=== PATIENT | male | born 1935 | race Asian ===

== ENCOUNTER 2016-10-18 14:33 | Inpatient (IN) | payer OTHER ==
[~2016-10-18] VITALS: Ht 157.5 cm; Wt 70.5 kg
[~2016-10-18 14:33] MED LIST: AMLO-511 PO; ASPI81TA2 PO; B CO1CAP4 PO; CHOL2000 PO; LABE200T PO; LISI10TA PO
[2016-10-18] MEDS ORDERED: LANT1000 PO (15:20)
[2016-10-18] MEDS ORDERED: SEVEC800 PO (15:20)
[2016-10-18] MEDS ORDERED: CINA30 PO (15:20)
[2016-10-18] MEDS ORDERED: FOLI1 PO (15:20)
[2016-10-18] MEDS ORDERED: HEPARIN SODIUM,PORCINE 5,000 UNITS/ML VIAL IVP ONE ×2 (18:30→19:00)
[2016-10-18 18:34] LABS: BASOPHILS % (AUTO) 0.4 % (0.0-2.0); EOSINOPHILS % (AUTO) 4.2 % (1.0-6.0); HEMATOCRIT 46.7 % (41-53); HEMOGLOBIN 15.2 g/dL (13.5-17.5); LYMPHOCYTES # (AUTO) 1.1 K/uL (1.0-4.8); MEAN CORPUSCULAR HGB CONC 32.5 G/dL (31.0-37.0); MEAN CORPUSCULAR VOLUME 95 fL (80-100); MONOCYTES # (AUTO) 0.6 K/uL (0.1-1.0); MONOCYTES % (AUTO) 8.3 % (2.0-9.0); NEUTROPHILS # (AUTO) 4.9 K/uL (1.8-7.7); NEUTROPHILS % (AUTO) 71.1 % (40.0-70.0); PLATELET COUNT (AUTO) 161 K/uL (150-450); WHITE BLOOD COUNT (AUTO) 6.8 K/uL (4.5-11.0)
[2016-10-18] MEDS ORDERED: MAGNESIUM HYDROXIDE SUSPENSION 30 ML UDCUP PO PRN (18:45)
[2016-10-18] MEDS ORDERED: BISACODYL 10 MG RECTAL RECTAL SUPPOSITORY PR PRN (18:45)
[2016-10-18] MEDS ORDERED: ZOLPIDEM TARTRATE 5 MG TABLET PO PRN (18:45)
[2016-10-18] MEDS ORDERED: ALBUTEROL SULFATE 2.5 MG/0.5 ML NEB SOLUTION NEB PRN (18:45)
[2016-10-18] MEDS ORDERED: ACETAMINOPHEN 325 MG TABLET PO PRN (18:45)
[2016-10-18] MEDS ORDERED: ONDANSETRON HCL 4 MG/2 ML VIAL IVP PRN (18:45)
[2016-10-18] MEDS ORDERED: IPRATROPIUM BROMIDE 0.5 MG/2.5 ML NEB SOLUTION NEB PRN (18:45)
[2016-10-18 18:48] LABS: PROTHROMBIN TIME 10.7 SEC (9.4-11.6)
[2016-10-18 18:50] LABS: ALBUMIN 2.8 g/dL (3.4-5.0); BILIRUBIN,TOTAL 0.4 mg/dL (0.1-1.0); CALCIUM, TOTAL 9.5 mg/dL (8.8-10.5); CREATININE 12.08 mg/dL (0.60-1.30); POTASSIUM 4.2 mmol/L (3.5-5.1); TOTAL PROTEIN, SERUM 7.8 g/dL (6.4-8.2)
[2016-10-18] MEDS ORDERED: HEPARIN SODIUM 25000 UNITS/D5W 250 ML IV PRN (18:53)
[2016-10-18] MEDS ORDERED: HEPARIN SODIUM,PORCINE 5,000 UNITS/ML VIAL IVP PRN ×2 (19:00)
[2016-10-18] MEDS: HEPARIN SODIUM 25000 UNITS/D5W 250 ML IV PRN (19:35)
[2016-10-18] MEDS ORDERED: CloNIDine HCL 0.1 MG TABLET PO PRN (20:15)
[2016-10-18 21:10] VITALS: BP 155/67
[2016-10-18] MEDS: TEMAZEPAM 15 MG CAPSULE PO PRN (22:08)
[2016-10-18 23:55] VITALS: BP 132/70
[2016-10-19 04:40] VITALS: BP 124/64
[2016-10-19 07:23] VITALS: BP 124/61
[2016-10-19] MEDS: CHOLECALCIFEROL (VIT D3) 2,000 UNITS TABLET PO SCH (08:31)
[2016-10-19] MEDS: FOLIC ACID 1 MG TABLET PO SCH (08:31)
[2016-10-19] MEDS: VITAMIN B COMP/VIT C/FOLIC ACID CAPSULE PO SCH (08:31)
[2016-10-19] MEDS: PANTOPRAZOLE SODIUM 40 MG DR TABLET PO SCH (08:31)
[2016-10-19] MEDS ORDERED: SEVELAMER CARBONATE 800 MG TABLET PO SCH (09:00)
[2016-10-19 09:17] LABS: BASOPHILS % (AUTO) 0.7 % (0.0-2.0); EOSINOPHILS % (AUTO) 4.1 % (1.0-6.0); HEMATOCRIT 44.3 % (41-53); HEMOGLOBIN 14.4 g/dL (13.5-17.5); LYMPHOCYTES # (AUTO) 0.9 K/uL (1.0-4.8); LYMPHOCYTES % (AUTO) 11.8 % (22.0-44.0); MEAN CORPUSCULAR HEMOGLOBIN 30.8 pg (26.0-34.0); MEAN CORPUSCULAR HGB CONC 32.4 G/dL (31.0-37.0); MEAN CORPUSCULAR VOLUME 95 fL (80-100); MONOCYTES # (AUTO) 0.5 K/uL (0.1-1.0); MONOCYTES % (AUTO) 7.1 % (2.0-9.0); NEUTROPHILS # (AUTO) 5.8 K/uL (1.8-7.7); NEUTROPHILS % (AUTO) 76.3 % (40.0-70.0); PLATELET COUNT (AUTO) 199 K/uL (150-450); RED BLOOD CELL COUNT(AUTO) 4.66 MIL/uL (4.50-5.90); RED CELL DISTRIBUTION WIDTH 14.9 % (11.5-14.5); WHITE BLOOD COUNT (AUTO) 7.6 K/uL (4.5-11.0)
[2016-10-19 09:40] LABS: CALCIUM, TOTAL 8.9 mg/dL (8.8-10.5); CHOL/HDL RATIO 2.4 (4.2-7.3); CREATININE 13.4 mg/dL (0.60-1.30); POTASSIUM 4.4 mmol/L (3.5-5.1); THYROID STIMULATING HORMONE 1.85 uIU/mL (0.36-3.74)
[2016-10-19] MEDS: HEPARIN SODIUM 25000 UNITS/D5W 250 ML IV PRN ×2 (09:49→20:02)
[2016-10-19 09:58] LABS: HEMOGLOBIN A1C 5.1 % (4.5-6.2)
[2016-10-19] MEDS ORDERED: SODIUM CHLORIDE 0.9% 2,000 ML IV ONE (10:06)
[2016-10-19 11:08] LABS: VITAMIN B12 LEVEL 644 pg/mL (211-911)
[2016-10-19 16:23] VITALS: BP 124/53
[2016-10-19] MEDS: SEVELAMER CARBONATE 800 MG TABLET PO SCH (17:27)
[2016-10-19] MEDS ORDERED: CINACALCET HCL 30 MG TABLET PO SCH (18:00)
[2016-10-19 19:34] VITALS: BP 122/72
[2016-10-19] MEDS: TEMAZEPAM 15 MG CAPSULE PO PRN (22:46)
[2016-10-19 23:11] VITALS: BP 118/61
[2016-10-20 04:18] VITALS: BP 123/60
[2016-10-20] MEDS: HEPARIN SODIUM 25000 UNITS/D5W 250 ML IV PRN (07:10)
[2016-10-20 07:22] LABS: BASOPHILS % (AUTO) 0.2 % (0.0-2.0); EOSINOPHILS % (AUTO) 5.1 % (1.0-6.0); HEMATOCRIT 45.5 % (41-53); HEMOGLOBIN 14.6 g/dL (13.5-17.5); LYMPHOCYTES % (AUTO) 20.6 % (22.0-44.0); MEAN CORPUSCULAR HEMOGLOBIN 30.8 pg (26.0-34.0); MEAN CORPUSCULAR HGB CONC 32.1 G/dL (31.0-37.0); MEAN CORPUSCULAR VOLUME 96 fL (80-100); MONOCYTES # (AUTO) 0.5 K/uL (0.1-1.0); MONOCYTES % (AUTO) 9.7 % (2.0-9.0); NEUTROPHILS # (AUTO) 3.3 K/uL (1.8-7.7); NEUTROPHILS % (AUTO) 64.4 % (40.0-70.0); PLATELET COUNT (AUTO) 197 K/uL (150-450); RED BLOOD CELL COUNT(AUTO) 4.75 MIL/uL (4.50-5.90); RED CELL DISTRIBUTION WIDTH 15.6 % (11.5-14.5); WHITE BLOOD COUNT (AUTO) 5.1 K/uL (4.5-11.0)
[2016-10-20 07:23] LABS: CALCIUM, TOTAL 8.6 mg/dL (8.8-10.5); CREATININE 9.78 mg/dL (0.60-1.30); PHOSPHORUS 4.8 mg/dL (2.5-4.9); POTASSIUM 4.1 mmol/L (3.5-5.1)
[2016-10-20 07:46] VITALS: BP 139/67
[2016-10-20] MEDS: SEVELAMER CARBONATE 800 MG TABLET PO SCH ×2 (08:07→14:50)
[2016-10-20] MEDS: VITAMIN B COMP/VIT C/FOLIC ACID CAPSULE PO SCH (08:08)
[2016-10-20] MEDS: FOLIC ACID 1 MG TABLET PO SCH (08:08)
[2016-10-20] MEDS: PANTOPRAZOLE SODIUM 40 MG DR TABLET PO SCH (08:08)
[2016-10-20] MEDS: CHOLECALCIFEROL (VIT D3) 2,000 UNITS TABLET PO SCH (08:08)
[2016-10-20 11:47] VITALS: BP 136/70
[2016-10-20 14:13] LABS: HEPATITIS Bs ANTIGEN SCREEN P Negative (Negative); HEPATITIS C AB SCREEN 0.1 s/co ratio (0.0-0.9)
[2016-10-21] MEDS ORDERED: EPOETIN ALFA 10,000 UNITS/ML 2 ML VIAL SQ SCH (09:00)
[2016-10-21] MEDS ORDERED: DOXERCALCIFEROL 4 MCG/2 ML AMP IVP SCH (09:00)
== END 2016-10-20 16:21 | disposition home or self-care (01) | DRG 314 ==
LOC: EMS 14:34 → 6N 18:42
PROVIDERS: ADMIT Internal Medicine Geriatric Medicine; ATTEND Internal Medicine Geriatric Medicine
PROC: 5A1D00Z (ICD-10-PCS; principal; 2016-10-19)
DX: T82.856A Stenosis of peripheral vascular stent, initial encounter (principal); N18.6 End stage renal disease; I82.B12 Acute embolism and thrombosis of left subclavian vein; I13.2 Hypertensive heart and chronic kidney disease with heart failure and with stage 5 chronic kidney disease, or end stage renal disease; E87.1 Hypo-osmolality and hyponatremia; E44.0 Moderate protein-calorie malnutrition; E78.5 Hyperlipidemia, unspecified; I50.9 Heart failure, unspecified; M10.9 Gout, unspecified; N28.1 Cyst of kidney, acquired; D63.1 Anemia in chronic kidney disease; E78.00 Pure hypercholesterolemia, unspecified; Z99.2 Dependence on renal dialysis; Z79.899 Other long term (current) drug therapy; Z98.890 Other specified postprocedural states; Z86.718 Personal history of other venous thrombosis and embolism; Y84.8 Other medical procedures as the cause of abnormal reaction of the patient, or of later complication, without mention of misadventure at the time of the procedure; Y93.89 Activity, other specified; Y92.89 Other specified places as the place of occurrence of the external cause; Z68.28 Body mass index [BMI] 28.0-28.9, adult
CPT/HCPCS: 80074; 82306; 82607; 82746; 83036; 83735; 84100; 84439; 84443; 87081; 90935; 93971; 96374; 99285; J0885; J1644; J7030

== ENCOUNTER 2018-03-02 11:22 | Emergency (ER) | payer OTHER, MEDICAID ==
[~2018-03-02] VITALS: Ht 157.5 cm; Wt 64.0 kg
[~2018-03-02 11:22] MED LIST changes: -AMLO-511 PO; -ASPI81TA2 PO; +CINA30 PO; +FOLI1 PO; -LABE200T PO; +LANT1000 PO; -LISI10TA PO; +SEVEC800 PO
[2018-03-02 12:06] VITALS: BP 121/58
[2018-03-02 13:07] LABS: CALCIUM, TOTAL 8.8 mg/dL (8.8-10.5); CREATININE 5.44 mg/dL (0.60-1.30); POTASSIUM 4.2 mmol/L (3.5-5.1)
== END 2018-03-02 13:25 | disposition home or self-care (01) ==
LOC: EMS 11:22
DX: R00.1 Bradycardia, unspecified (principal); I12.0 Hypertensive chronic kidney disease with stage 5 chronic kidney disease or end stage renal disease; N18.6 End stage renal disease; E78.00 Pure hypercholesterolemia, unspecified; Z99.2 Dependence on renal dialysis
CPT/HCPCS: 93005; 99285

== ENCOUNTER → 2018-04-07 | Outpatient (CLI) | payer OTHER, MEDICAID | END | disposition home or self-care (01) | LOC: RADPV 14:14 | PROVIDERS: ATTEND Internal Medicine Cardiovascular Disease | DX: I08.3 Combined rheumatic disorders of mitral, aortic and tricuspid valves (principal); I40.9 Acute myocarditis, unspecified; I49.9 Cardiac arrhythmia, unspecified; E78.00 Pure hypercholesterolemia, unspecified; I10 Essential (primary) hypertension; M10.9 Gout, unspecified | CPT/HCPCS: 93306 ==

== ENCOUNTER 2018-11-05 18:04 | Emergency (ER) | payer MEDICARE, MEDICAID ==
[~2018-11-05] VITALS: Ht 157.5 cm; Wt 65.9 kg
[2018-11-05] MEDS ORDERED: TEMA15CA PO (18:13)
[2018-11-05] MEDS ORDERED: CINA30 PO (18:13)
[2018-11-05] MEDS ORDERED: DOXY100C PO (18:13)
[2018-11-05 18:34] LABS: BASOPHILS % (AUTO) 0.3 % (0.0-2.0); EOSINOPHILS % (AUTO) 1.3 % (1.0-6.0); HEMATOCRIT 39.5 % (41-53); HEMOGLOBIN 13.5 g/dL (13.5-17.5); LYMPHOCYTES # (AUTO) 0.5 K/uL (1.0-4.8); LYMPHOCYTES % (AUTO) 4.3 % (22.0-44.0); MEAN CORPUSCULAR HEMOGLOBIN 31.7 pg (26.0-34.0); MEAN CORPUSCULAR HGB CONC 34.1 G/dL (31.0-37.0); MEAN CORPUSCULAR VOLUME 93 fL (80-100); MONOCYTES # (AUTO) 0.6 K/uL (0.1-1.0); NEUTROPHILS # (AUTO) 9.4 K/uL (1.8-7.7); PLATELET COUNT (AUTO) 168 K/uL (150-450); RED BLOOD CELL COUNT(AUTO) 4.25 MIL/uL (4.50-5.90); RED CELL DISTRIBUTION WIDTH 15.1 % (11.5-14.5)
[2018-11-05 18:37] LABS: NEUTROPHILS % (AUTO) 88.1 % (40.0-70.0)
[2018-11-05 18:43] LABS: CALCIUM, TOTAL 9.8 mg/dL (8.8-10.5); CREATININE 8.06 mg/dL (0.60-1.30); POTASSIUM 5.1 mmol/L (3.5-5.1)
[2018-11-05 18:50] LABS: ALBUMIN 3.4 g/dL (3.4-5.0); BILIRUBIN,TOTAL 1.1 mg/dL (0.1-1.0); TOTAL PROTEIN, SERUM 8.1 g/dL (6.4-8.2)
[2018-11-05 18:51] LABS: LACTIC ACID 1.7 mmol/L (0.4-2.0)
[2018-11-05 21:08] LABS: INFLUENZA TYPE A NEGATIVE FOR TYPE A (NEGATIVE); INFLUENZA TYPE B NEGATIVE FOR TYPE B (NEGATIVE)
[2018-11-05] MEDS ORDERED: CefTRIAXone SODIUM 1 GM/VIAL IM ONE (21:30)
[2018-11-05] MEDS ORDERED: LIDOCAINE/PF 1% 2 ML VIAL IM ONE (21:30)
[2018-11-05] MEDS ORDERED: ALBUTEROL SULFATE 2.5 MG/0.5 ML NEB SOLUTION NEB ONE (21:35)
[2018-11-05 22:21] VITALS: BP 150/71
== END 2018-11-05 22:31 | disposition home or self-care (01) ==
LOC: EMS 18:06
DX: J20.9 Acute bronchitis, unspecified (principal); I12.0 Hypertensive chronic kidney disease with stage 5 chronic kidney disease or end stage renal disease; N18.6 End stage renal disease; E78.00 Pure hypercholesterolemia, unspecified; Z99.2 Dependence on renal dialysis
CPT/HCPCS: 71045; 80053; 83605; 85025; 87804; 94640; 96372; 99284; J0696; J3490

== ENCOUNTER 2018-11-13 16:47 | Inpatient (IN) | payer MEDICARE, MEDICAID ==
[~2018-11-13] VITALS: Ht 162.6 cm; Wt 59.1 kg
[~2018-11-13 16:47] MED LIST changes: +DOXY100C PO; +TEMA15CA PO
[2018-11-13] MEDS ORDERED: MELA5TAB3 PO (16:59)
[2018-11-13 17:22] LABS: BASOPHILS % (AUTO) 0.5 % (0.0-2.0); EOSINOPHILS % (AUTO) 2.3 % (1.0-6.0); HEMATOCRIT 37.1 % (41-53); HEMOGLOBIN 12.5 g/dL (13.5-17.5); LYMPHOCYTES # (AUTO) 0.8 K/uL (1.0-4.8); LYMPHOCYTES % (AUTO) 10.3 % (22.0-44.0); MEAN CORPUSCULAR HGB CONC 33.8 G/dL (31.0-37.0); MEAN CORPUSCULAR VOLUME 92 fL (80-100); MONOCYTES # (AUTO) 0.7 K/uL (0.1-1.0); MONOCYTES % (AUTO) 8.6 % (2.0-9.0); NEUTROPHILS # (AUTO) 6.4 K/uL (1.8-7.7); NEUTROPHILS % (AUTO) 78.3 % (40.0-70.0); PLATELET COUNT (AUTO) 203 K/uL (150-450); RED BLOOD CELL COUNT(AUTO) 4.04 MIL/uL (4.50-5.90); RED CELL DISTRIBUTION WIDTH 14.8 % (11.5-14.5)
[2018-11-13 17:30] LABS: CREATININE 10.43 mg/dL (0.60-1.30); POTASSIUM 4.5 mmol/L (3.5-5.1)
[2018-11-13 17:34] LABS: PROTHROMBIN TIME 10.4 SEC (9.4-11.6)
[2018-11-13 17:55] LABS: ALBUMIN 3.4 g/dL (3.4-5.0); BILIRUBIN,TOTAL 1.5 mg/dL (0.1-1.0); TOTAL PROTEIN, SERUM 7.7 g/dL (6.4-8.2)
[2018-11-13] MEDS ORDERED: IPRATROPIUM BROMIDE 0.5 MG/2.5 ML NEB SOLUTION NEB ONE (18:15)
[2018-11-13] MEDS ORDERED: ALBUTEROL SULFATE 2.5 MG/0.5 ML NEB SOLUTION NEB ONE (18:15)
[2018-11-13] MEDS ORDERED: CloNIDine HCL 0.2 MG TABLET PO ONE (18:45)
[2018-11-13] MEDS ORDERED: ACETAMINOPHEN 325 MG TABLET PO PRN (18:45)
[2018-11-13] MEDS ORDERED: 0.9% SODIUM CHLORIDE 10 ML SYRINGE IVP PRN ×2 (18:45→23:30)
[2018-11-13] MEDS ORDERED: ONDANSETRON HCL 4 MG/2 ML VIAL IVP PRN ×2 (18:45→23:30)
[2018-11-13] MEDS ORDERED: [UNRECOGNIZED DRUG - CODE] PO (21:21)
[2018-11-13 22:07] VITALS: BP 170/79
[2018-11-13] MEDS ORDERED: TEMAZEPAM 15 MG CAPSULE PO SCH (23:30)
[2018-11-14 00:09] VITALS: BP 163/75
[2018-11-14] MEDS: GuaiFENesin/D-METHORPHAN [SUGAR-FREE] 200-20MG/10 ML SYRUP UDCUP PO PRN ×3 (01:11→21:16)
[2018-11-14] MEDS: TEMAZEPAM 15 MG CAPSULE PO PRN ×2 (01:11→22:36)
[2018-11-14 04:11] VITALS: BP 134/60
[2018-11-14 05:46] LABS: BASOPHILS % (AUTO) 0.5 % (0.0-2.0); EOSINOPHILS % (AUTO) 3.3 % (1.0-6.0); HEMATOCRIT 35.4 % (41-53); HEMOGLOBIN 11.8 g/dL (13.5-17.5); LYMPHOCYTES # (AUTO) 0.6 K/uL (1.0-4.8); LYMPHOCYTES % (AUTO) 9.8 % (22.0-44.0); MEAN CORPUSCULAR HGB CONC 33.3 G/dL (31.0-37.0); MEAN CORPUSCULAR VOLUME 93 fL (80-100); MONOCYTES # (AUTO) 0.5 K/uL (0.1-1.0); MONOCYTES % (AUTO) 7.9 % (2.0-9.0); NEUTROPHILS # (AUTO) 4.8 K/uL (1.8-7.7); NEUTROPHILS % (AUTO) 78.5 % (40.0-70.0); PLATELET COUNT (AUTO) 190 K/uL (150-450); RED BLOOD CELL COUNT(AUTO) 3.81 MIL/uL (4.50-5.90); RED CELL DISTRIBUTION WIDTH 14.6 % (11.5-14.5)
[2018-11-14 07:17] LABS: ALBUMIN 2.9 g/dL (3.4-5.0); CALCIUM, TOTAL 9.4 mg/dL (8.8-10.5); CREATININE 5.97 mg/dL (0.60-1.30); MAGNESIUM 2.1 mg/dL (1.80-2.40); POTASSIUM 4.3 mmol/L (3.5-5.1); TOTAL PROTEIN, SERUM 7.1 g/dL (6.4-8.2)
[2018-11-14 08:06] VITALS: BP 155/63
[2018-11-14] MEDS: SEVELAMER CARBONATE 800 MG TABLET PO SCH (08:44)
[2018-11-14] MEDS: CHOLECALCIFEROL (VIT D3) 2,000 UNITS TABLET PO SCH (08:44)
[2018-11-14] MEDS: PANTOPRAZOLE SODIUM 40 MG/VIAL IVP SCH (08:44)
[2018-11-14] MEDS: CINACALCET HCL 30 MG TABLET PO SCH (08:44)
[2018-11-14] MEDS: VITAMIN B COMP/VIT C/FOLIC ACID CAPSULE PO SCH (08:44)
[2018-11-14] MEDS: FOLIC ACID 1 MG TABLET PO SCH (08:44)
[2018-11-14] MEDS: DOXYCYCLINE HYCLATE 100 MG CAPSULE PO SCH ×2 (08:45→21:10)
[2018-11-14] MEDS: LANTHANUM CARBONATE 500 MG CHEW TABLET PO SCH (08:45)
[2018-11-14 11:07] VITALS: BP 121/58
[2018-11-14 15:24] VITALS: BP 160/68
[2018-11-14 20:53] VITALS: BP 187/76
[2018-11-14] MEDS: MELATONIN 5 MG TABLET PO SCH (21:10)
[2018-11-14] MEDS ORDERED: CloNIDine HCL 0.1 MG TABLET PO ONE (22:15)
[2018-11-15 00:31] VITALS: BP 140/66
[2018-11-15 05:31] VITALS: BP 158/80
[2018-11-15 06:26] LABS: BASOPHILS % (AUTO) 0.7 % (0.0-2.0); EOSINOPHILS % (AUTO) 6.2 % (1.0-6.0); HEMATOCRIT 35.3 % (41-53); HEMOGLOBIN 11.7 g/dL (13.5-17.5); LYMPHOCYTES # (AUTO) 0.9 K/uL (1.0-4.8); LYMPHOCYTES % (AUTO) 13.5 % (22.0-44.0); MEAN CORPUSCULAR HGB CONC 33.2 G/dL (31.0-37.0); MEAN CORPUSCULAR VOLUME 93 fL (80-100); MONOCYTES # (AUTO) 0.6 K/uL (0.1-1.0); MONOCYTES % (AUTO) 8.8 % (2.0-9.0); NEUTROPHILS # (AUTO) 4.6 K/uL (1.8-7.7); NEUTROPHILS % (AUTO) 70.8 % (40.0-70.0); PLATELET COUNT (AUTO) 180 K/uL (150-450); RED BLOOD CELL COUNT(AUTO) 3.78 MIL/uL (4.50-5.90); RED CELL DISTRIBUTION WIDTH 14.9 % (11.5-14.5)
[2018-11-15 06:53] LABS: ALBUMIN 2.7 g/dL (3.4-5.0); BILIRUBIN,TOTAL 1.1 mg/dL (0.1-1.0); CALCIUM, TOTAL 9.1 mg/dL (8.8-10.5); CREATININE 8.39 mg/dL (0.60-1.30); POTASSIUM 4.9 mmol/L (3.5-5.1); TOTAL PROTEIN, SERUM 6.6 g/dL (6.4-8.2)
[2018-11-15 08:04] VITALS: BP 156/69
[2018-11-15] MEDS: CINACALCET HCL 30 MG TABLET PO SCH (08:18)
[2018-11-15] MEDS: CHOLECALCIFEROL (VIT D3) 2,000 UNITS TABLET PO SCH (08:18)
[2018-11-15] MEDS: DOXYCYCLINE HYCLATE 100 MG CAPSULE PO SCH ×2 (08:18→21:33)
[2018-11-15] MEDS: SEVELAMER CARBONATE 800 MG TABLET PO SCH (08:19)
[2018-11-15] MEDS: FOLIC ACID 1 MG TABLET PO SCH (08:19)
[2018-11-15] MEDS: VITAMIN B COMP/VIT C/FOLIC ACID CAPSULE PO SCH (08:19)
[2018-11-15] MEDS: LANTHANUM CARBONATE 500 MG CHEW TABLET PO SCH (08:24)
[2018-11-15] MEDS: PANTOPRAZOLE SODIUM 40 MG/VIAL IVP SCH (09:00)
[2018-11-15] MEDS ORDERED: SODIUM CHLORIDE 0.9% 2,000 ML IV ONE (09:22)
[2018-11-15 11:29] VITALS: BP 162/68
[2018-11-15 15:54] VITALS: BP 158/66
[2018-11-15 20:46] VITALS: BP 156/65
[2018-11-15] MEDS: GuaiFENesin/D-METHORPHAN [SUGAR-FREE] 200-20MG/10 ML SYRUP UDCUP PO PRN (21:33)
[2018-11-15] MEDS: MELATONIN 5 MG TABLET PO SCH (21:33)
[2018-11-15] MEDS: TEMAZEPAM 15 MG CAPSULE PO PRN (23:19)
[2018-11-16 00:47] VITALS: BP 148/64
[2018-11-16 04:56] VITALS: BP 153/60
[2018-11-16 05:52] LABS: BASOPHILS % (AUTO) 0.8 % (0.0-2.0); EOSINOPHILS % (AUTO) 6.2 % (1.0-6.0); HEMATOCRIT 39.4 % (41-53); HEMOGLOBIN 13.1 g/dL (13.5-17.5); LYMPHOCYTES % (AUTO) 15.7 % (22.0-44.0); MEAN CORPUSCULAR HEMOGLOBIN 30.8 pg (26.0-34.0); MEAN CORPUSCULAR HGB CONC 33.4 G/dL (31.0-37.0); MEAN CORPUSCULAR VOLUME 93 fL (80-100); MONOCYTES # (AUTO) 0.5 K/uL (0.1-1.0); MONOCYTES % (AUTO) 8.7 % (2.0-9.0); NEUTROPHILS # (AUTO) 4.2 K/uL (1.8-7.7); NEUTROPHILS % (AUTO) 68.6 % (40.0-70.0); PLATELET COUNT (AUTO) 208 K/uL (150-450); RED BLOOD CELL COUNT(AUTO) 4.26 MIL/uL (4.50-5.90); RED CELL DISTRIBUTION WIDTH 15.1 % (11.5-14.5)
[2018-11-16 06:15] LABS: HEMOGLOBIN A1C 5.8 % (4.5-6.2)
[2018-11-16 06:21] LABS: CALCIUM, TOTAL 9.3 mg/dL (8.8-10.5); CHOL/HDL RATIO 3.2 (4.2-7.3); CREATININE 6.56 mg/dL (0.60-1.30); POTASSIUM 4.6 mmol/L (3.5-5.1); THYROID STIMULATING HORMONE 2.63 uIU/mL (0.36-3.74)
[2018-11-16 08:09] VITALS: BP 172/79
[2018-11-16] MEDS: FOLIC ACID 1 MG TABLET PO SCH (08:12)
[2018-11-16] MEDS: PANTOPRAZOLE SODIUM 40 MG/VIAL IVP SCH (08:12)
[2018-11-16] MEDS: LANTHANUM CARBONATE 500 MG CHEW TABLET PO SCH (08:12)
[2018-11-16] MEDS: CINACALCET HCL 30 MG TABLET PO SCH (08:12)
[2018-11-16] MEDS: DOXYCYCLINE HYCLATE 100 MG CAPSULE PO SCH ×2 (08:12→20:00)
[2018-11-16] MEDS: VITAMIN B COMP/VIT C/FOLIC ACID CAPSULE PO SCH (08:12)
[2018-11-16] MEDS: CHOLECALCIFEROL (VIT D3) 2,000 UNITS TABLET PO SCH (08:12)
[2018-11-16] MEDS: SEVELAMER CARBONATE 800 MG TABLET PO SCH (08:29)
[2018-11-16 11:06] VITALS: BP 147/57
[2018-11-16] MEDS ORDERED: IPRATROPIUM BROMIDE 0.5 MG/2.5 ML NEB SOLUTION NEB PRN (14:00)
[2018-11-16] MEDS ORDERED: ALBUTEROL SULFATE 2.5 MG/0.5 ML NEB SOLUTION NEB PRN (14:00)
[2018-11-16] MEDS: MONTELUKAST SODIUM 10 MG TABLET PO SCH (14:06)
[2018-11-16 16:04] VITALS: BP 166/70
[2018-11-16] MEDS: MethylPREDNISolone SOD SUCC 40 MG/ML VIAL IVP SCH ×3 (16:10→23:03)
[2018-11-16] MEDS: GuaiFENesin/D-METHORPHAN [SUGAR-FREE] 200-20MG/10 ML SYRUP UDCUP PO PRN (20:00)
[2018-11-16] MEDS: MELATONIN 5 MG TABLET PO SCH (20:01)
[2018-11-16] MEDS: IPRATROPIUM BROMIDE 0.5 MG/2.5 ML NEB SOLUTION NEB SCH (20:07)
[2018-11-16] MEDS: ALBUTEROL SULFATE 2.5 MG/0.5 ML NEB SOLUTION NEB SCH (20:07)
[2018-11-16 21:15] VITALS: BP 197/76
[2018-11-16] MEDS: CloNIDine HCL 0.1 MG TABLET PO PRN (21:41)
[2018-11-16] MEDS: TEMAZEPAM 15 MG CAPSULE PO PRN (21:41)
[2018-11-17 00:14] VITALS: BP 149/76
[2018-11-17] MEDS: IPRATROPIUM BROMIDE 0.5 MG/2.5 ML NEB SOLUTION NEB SCH ×4 (02:47→20:29)
[2018-11-17] MEDS: ALBUTEROL SULFATE 2.5 MG/0.5 ML NEB SOLUTION NEB SCH ×4 (02:47→20:29)
[2018-11-17] MEDS: MethylPREDNISolone SOD SUCC 40 MG/ML VIAL IVP SCH ×4 (04:52→22:55)
[2018-11-17 05:52] LABS: BASOPHILS % (AUTO) 0.1 % (0.0-2.0); EOSINOPHILS % (AUTO) 0 % (1.0-6.0); HEMATOCRIT 39.3 % (41-53); HEMOGLOBIN 13.1 g/dL (13.5-17.5); LYMPHOCYTES # (AUTO) 0.4 K/uL (1.0-4.8); LYMPHOCYTES % (AUTO) 4.3 % (22.0-44.0); MEAN CORPUSCULAR HEMOGLOBIN 30.9 pg (26.0-34.0); MEAN CORPUSCULAR HGB CONC 33.3 G/dL (31.0-37.0); MEAN CORPUSCULAR VOLUME 93 fL (80-100); MONOCYTES % (AUTO) 0.6 % (2.0-9.0); PLATELET COUNT (AUTO) 218 K/uL (150-450); RED BLOOD CELL COUNT(AUTO) 4.22 MIL/uL (4.50-5.90); RED CELL DISTRIBUTION WIDTH 14.6 % (11.5-14.5)
[2018-11-17 06:02] VITALS: BP 150/63
[2018-11-17 06:20] LABS: CALCIUM, TOTAL 9.5 mg/dL (8.8-10.5); CREATININE 9.52 mg/dL (0.60-1.30)
[2018-11-17 06:46] LABS: POTASSIUM 4.8 mmol/L (3.5-5.1)
[2018-11-17 07:44] VITALS: BP 182/80
[2018-11-17] MEDS: MONTELUKAST SODIUM 10 MG TABLET PO SCH (09:02)
[2018-11-17] MEDS: VITAMIN B COMP/VIT C/FOLIC ACID CAPSULE PO SCH (09:02)
[2018-11-17] MEDS: CINACALCET HCL 30 MG TABLET PO SCH (09:03)
[2018-11-17] MEDS: AmLODIPine BESYLATE 10 MG TABLET PO SCH (09:03)
[2018-11-17] MEDS: CHOLECALCIFEROL (VIT D3) 2,000 UNITS TABLET PO SCH (09:03)
[2018-11-17] MEDS: DOXYCYCLINE HYCLATE 100 MG CAPSULE PO SCH ×2 (09:03→21:59)
[2018-11-17] MEDS: FOLIC ACID 1 MG TABLET PO SCH (09:03)
[2018-11-17] MEDS: PANTOPRAZOLE SODIUM 40 MG/VIAL IVP SCH (09:03)
[2018-11-17 11:35] VITALS: BP 198/86
[2018-11-17] MEDS: CloNIDine HCL 0.1 MG TABLET PO PRN (11:41)
[2018-11-17 18:33] VITALS: BP 172/80
[2018-11-17 19:40] VITALS: BP 149/64
[2018-11-17] MEDS: TEMAZEPAM 15 MG CAPSULE PO PRN (21:59)
[2018-11-17] MEDS: MELATONIN 5 MG TABLET PO SCH (21:59)
[2018-11-17] MEDS: GuaiFENesin/D-METHORPHAN [SUGAR-FREE] 200-20MG/10 ML SYRUP UDCUP PO PRN (21:59)
[2018-11-18 00:02] VITALS: BP 112/51
[2018-11-18] MEDS: ALBUTEROL SULFATE 2.5 MG/0.5 ML NEB SOLUTION NEB SCH ×3 (02:28→14:16)
[2018-11-18] MEDS: IPRATROPIUM BROMIDE 0.5 MG/2.5 ML NEB SOLUTION NEB SCH ×3 (02:28→14:16)
[2018-11-18 04:08] VITALS: BP 116/52
[2018-11-18] MEDS: MethylPREDNISolone SOD SUCC 40 MG/ML VIAL IVP SCH ×2 (05:07→12:57)
[2018-11-18 07:04] LABS: EOSINOPHILS % (AUTO) 0 % (1.0-6.0); HEMATOCRIT 39.6 % (41-53); HEMOGLOBIN 13.1 g/dL (13.5-17.5); LYMPHOCYTES # (AUTO) 0.3 K/uL (1.0-4.8); LYMPHOCYTES % (AUTO) 1.5 % (22.0-44.0); MEAN CORPUSCULAR HEMOGLOBIN 30.7 pg (26.0-34.0); MEAN CORPUSCULAR VOLUME 93 fL (80-100); MONOCYTES # (AUTO) 0.2 K/uL (0.1-1.0); PLATELET COUNT (AUTO) 226 K/uL (150-450); RED BLOOD CELL COUNT(AUTO) 4.26 MIL/uL (4.50-5.90)
[2018-11-18 07:09] VITALS: BP 133/60
[2018-11-18 07:13] LABS: CALCIUM, TOTAL 9.3 mg/dL (8.8-10.5); CREATININE 7.2 mg/dL (0.60-1.30); POTASSIUM 5.4 mmol/L (3.5-5.1)
[2018-11-18 07:19] LABS: NEUTROPHILS % (AUTO) 97.5 % (40.0-70.0)
[2018-11-18] MEDS: DOXYCYCLINE HYCLATE 100 MG CAPSULE PO SCH (08:26)
[2018-11-18] MEDS: CHOLECALCIFEROL (VIT D3) 2,000 UNITS TABLET PO SCH (08:26)
[2018-11-18] MEDS: CINACALCET HCL 30 MG TABLET PO SCH (08:26)
[2018-11-18] MEDS: AmLODIPine BESYLATE 10 MG TABLET PO SCH (08:26)
[2018-11-18] MEDS: MONTELUKAST SODIUM 10 MG TABLET PO SCH (08:26)
[2018-11-18] MEDS: VITAMIN B COMP/VIT C/FOLIC ACID CAPSULE PO SCH (08:26)
[2018-11-18] MEDS: PANTOPRAZOLE SODIUM 40 MG/VIAL IVP SCH (08:26)
[2018-11-18] MEDS: FOLIC ACID 1 MG TABLET PO SCH (08:26)
[2018-11-18 12:09] VITALS: BP 128/58
[2018-11-18] MEDS ORDERED: AMLO-512 PO (12:35)
[2018-11-18] MEDS ORDERED: MONT10TA21 PO (12:37)
[2018-11-18] MEDS ORDERED: PRED20 PO (12:43)
[2018-11-18 15:16] VITALS: BP 149/75
== END 2018-11-18 16:55 | disposition home health service (06) | DRG 291 ==
LOC: EMS 16:48 → 5S 18:48
PROVIDERS: ADMIT Internal Medicine; ATTEND Internal Medicine Geriatric Medicine
PROC: 5A1D70Z Performance of Urinary Filtration, Intermittent, Less than 6 Hours Per Day (ICD-10-PCS; principal; 2018-11-14)
PROC: 5A1D70Z Performance of Urinary Filtration, Intermittent, Less than 6 Hours Per Day (ICD-10-PCS; 2018-11-15)
PROC: 5A1D70Z Performance of Urinary Filtration, Intermittent, Less than 6 Hours Per Day (ICD-10-PCS; 2018-11-17)
DX: I13.2 Hypertensive heart and chronic kidney disease with heart failure and with stage 5 chronic kidney disease, or end stage renal disease (principal); N18.6 End stage renal disease; I50.41 Acute combined systolic (congestive) and diastolic (congestive) heart failure; E87.1 Hypo-osmolality and hyponatremia; J45.901 Unspecified asthma with (acute) exacerbation; E87.70 Fluid overload, unspecified; E78.00 Pure hypercholesterolemia, unspecified; Z99.2 Dependence on renal dialysis; E78.5 Hyperlipidemia, unspecified; D63.1 Anemia in chronic kidney disease; J06.9 Acute upper respiratory infection, unspecified; J44.9 Chronic obstructive pulmonary disease, unspecified; R91.1 Solitary pulmonary nodule; D72.829 Elevated white blood cell count, unspecified; Z87.01 Personal history of pneumonia (recurrent)
CPT/HCPCS: 71250; 83036; 83605; 83735; 84145; 84443; 87040; 87081; 87340; 93005; 93306; 94640; 94667; C9113; G0378; J2920; J7030

== ENCOUNTER → 2018-12-15 | Outpatient (CLI) | payer MEDICARE, MEDICAID ==
[~2018-12-15] MED LIST changes: +AMLO-512 PO; -DOXY100C PO; +MELA5TAB3 PO; +MONT10TA21 PO; +PRED20 PO; -TEMA15CA PO
== END | disposition home or self-care (01) ==
LOC: RADPV 10:46
PROVIDERS: ATTEND Legal Medicine
DX: H81.49 Vertigo of central origin, unspecified ear (principal); I65.23 Occlusion and stenosis of bilateral carotid arteries
CPT/HCPCS: 93880

== ENCOUNTER → 2019-03-09 | Outpatient (CLI) | payer MEDICARE, MEDICAID ==
[~2019-03-09] MED LIST changes: -AMLO-512 PO; +AMLO10TA7 PO
== END | disposition home or self-care (01) ==
LOC: RADPV 15:01
PROVIDERS: ATTEND Legal Medicine
DX: I70.0 Atherosclerosis of aorta (principal); I25.10 Atherosclerotic heart disease of native coronary artery without angina pectoris

== ENCOUNTER 2021-09-29 13:12 | Emergency (ER) | payer MEDICARE, OTHER ==
[~2021-09-29] VITALS: Ht 160 cm; Wt 61.7 kg
[~2021-09-29 13:12] MED LIST changes: +AMLO-258 PO; -AMLO10TA7 PO; +FOLI-130 PO; -FOLI1 PO; -MELA5TAB3 PO; +MELA5TAB40 PO; +MONT-35 PO; -MONT10TA21 PO; +PRED-554 PO; -PRED20 PO; +SEVE800T17 PO; -SEVEC800 PO
[2021-09-29] MEDS ORDERED: CHOL-35 PO (14:12)
[2021-09-29] MEDS ORDERED: TEMA30 PO (14:12)
[2021-09-29] MEDS ORDERED: FOLI1CAP24 PO (14:12)
[2021-09-29] MEDS ORDERED: ATOR20TA65 PO (14:12)
[2021-09-29] MEDS ORDERED: LOPERAMIDE HCL 2 MG CAPSULE PO ONE (14:15)
[2021-09-29 14:20] LABS: BASOPHILS % (AUTO) 0.2 % (0.0-2.0); EOSINOPHILS % (AUTO) 5.5 % (1.0-6.0); HEMATOCRIT 45.6 % (41-53); HEMOGLOBIN 15.4 g/dL (13.5-17.5); LYMPHOCYTES # (AUTO) 0.7 K/uL (1.0-4.8); MEAN CORPUSCULAR HGB CONC 33.7 G/dL (31.0-37.0); MEAN CORPUSCULAR VOLUME 101 fL (80-100); MONOCYTES # (AUTO) 0.7 K/uL (0.1-1.0); MONOCYTES % (AUTO) 13.4 % (2.0-9.0); NEUTROPHILS # (AUTO) 3.4 K/uL (1.8-7.7); NEUTROPHILS % (AUTO) 66.9 % (40.0-70.0); PLATELET COUNT (AUTO) 157 K/uL (150-450); RED BLOOD CELL COUNT(AUTO) 4.53 MIL/uL (4.50-5.90); RED CELL DISTRIBUTION WIDTH 13.4 % (11.5-14.5)
[2021-09-29 14:28] LABS: CALCIUM, TOTAL 9.3 mg/dL (8.8-10.5); CREATININE 6.66 mg/dL (0.60-1.30); POTASSIUM 4.7 mmol/L (3.5-5.1)
[2021-09-29 15:12] VITALS: BP 137/71
== END 2021-09-29 15:13 | disposition home or self-care (01) ==
LOC: EMS 13:38
DX: R19.7 Diarrhea, unspecified (principal); I12.0 Hypertensive chronic kidney disease with stage 5 chronic kidney disease or end stage renal disease; N18.6 End stage renal disease; E78.00 Pure hypercholesterolemia, unspecified; Z79.899 Other long term (current) drug therapy; Z99.2 Dependence on renal dialysis
CPT/HCPCS: 80048; 85025; 99283

== ENCOUNTER 2022-03-03 20:39 | Emergency (ER) | payer MEDICARE, OTHER ==
[~2022-03-03] VITALS: Ht 157.5 cm; Wt 64.0 kg
[~2022-03-03 20:39] MED LIST changes: +ATOR20TA65 PO; -B CO1CAP4 PO; -CHOL2000 PO; +CHOL25TA4 PO; -FOLI-130 PO; +FOLI1CAP24 PO; -MELA5TAB40 PO; -PRED-554 PO; +TEMA30 PO
[2022-03-03 21:31] LABS: BASOPHILS % (AUTO) 0.2 % (0.0-2.0); EOSINOPHILS % (AUTO) 7.2 % (1.0-6.0); HEMATOCRIT 44.9 % (41-53); LYMPHOCYTES # (AUTO) 0.7 K/uL (1.0-4.8); LYMPHOCYTES % (AUTO) 10.5 % (22.0-44.0); MEAN CORPUSCULAR HEMOGLOBIN 32.3 pg (26.0-34.0); MEAN CORPUSCULAR HGB CONC 33.4 G/dL (31.0-37.0); MEAN CORPUSCULAR VOLUME 97 fL (80-100); MONOCYTES # (AUTO) 0.7 K/uL (0.1-1.0); MONOCYTES % (AUTO) 10.1 % (2.0-9.0); NEUTROPHILS # (AUTO) 5.1 K/uL (1.8-7.7); PLATELET COUNT (AUTO) 154 K/uL (150-450); RED BLOOD CELL COUNT(AUTO) 4.64 MIL/uL (4.50-5.90); RED CELL DISTRIBUTION WIDTH 14.4 % (11.5-14.5)
[2022-03-03 21:33] LABS: COVID AG,FIA SOURCE NASOPHARYNGEAL
[2022-03-03 21:37] LABS: CALCIUM, TOTAL 8.6 mg/dL (8.8-10.5); CREATININE 9.56 mg/dL (0.60-1.30); POTASSIUM 5.7 mmol/L (3.5-5.1)
[2022-03-03 21:44] LABS: ALBUMIN 2.7 g/dL (3.4-5.0); BILIRUBIN,TOTAL 0.4 mg/dL (0.1-1.0); TOTAL PROTEIN, SERUM 7.7 g/dL (6.4-8.2)
[2022-03-03] MEDS ORDERED: SODIUM CHLORIDE 0.9% 500 ML IV ONE (22:30)
[2022-03-04 00:41] VITALS: BP 182/84
[2022-03-04] MEDS ORDERED: SODIUM CHLORIDE 0.9% 500 ML IV ONE (01:00)
[2022-03-04] MEDS ORDERED: MAGNESIUM HYDROXIDE SUSPENSION 30 ML UDCUP PO PRN (01:00)
[2022-03-04] MEDS ORDERED: HYDROCODONE/ACETAMINOPHEN 5-325 MG TABLET PO PRN (01:00)
[2022-03-04] MEDS ORDERED: ZOLPIDEM TARTRATE 5 MG TABLET PO PRN (01:00)
[2022-03-04] MEDS ORDERED: ACETAMINOPHEN 325 MG TABLET PO PRN (01:00)
[2022-03-04] MEDS ORDERED: ONDANSETRON HCL 4 MG/2 ML VIAL IVP PRN (01:00)
[2022-03-04] MEDS ORDERED: BISACODYL 10 MG RECTAL RECTAL SUPPOSITORY PR PRN (01:00)
[2022-03-04] MEDS ORDERED: MORPHINE SULFATE 2 MG/ML SYRINGE IVP PRN (01:00)
[2022-03-04] MEDS ORDERED: SODIUM POLYSTYRENE SULFONATE 15 GM/60 ML SUSPENSION BOTTLE PO ONE (01:15)
[2022-03-04] MEDS ORDERED: CINACALCET HCL 30 MG TABLET PO SCH (08:00)
[2022-03-04] MEDS ORDERED: HEPARIN SODIUM,PORCINE 5,000 UNITS/ML VIAL SQ SCH (08:00)
[2022-03-04] MEDS ORDERED: SEVELAMER CARBONATE 800 MG TABLET PO SCH (08:00)
[2022-03-04] MEDS ORDERED: MONTELUKAST SODIUM 10 MG TABLET PO SCH (09:00)
[2022-03-04] MEDS ORDERED: AmLODIPine BESYLATE 10 MG TABLET PO SCH (09:00)
[2022-03-04] MEDS ORDERED: SODIUM ZIRCONIUM CYCLOSILICATE 5 GM POWDER PACKET PO SCH (09:00)
[2022-03-04] MEDS ORDERED: ATORVASTATIN CALCIUM 20 MG TABLET PO SCH (09:00)
[2022-03-04] MEDS ORDERED: PANTOPRAZOLE SODIUM 40 MG DR TABLET PO SCH (09:00)
[2022-03-04] MEDS ORDERED: CHOLECALCIFEROL (VIT D3) 1,000 UNITS [25 MCG] TABLET PO SCH (09:00)
[2022-03-04] MEDS ORDERED: DOCUSATE SODIUM 100 MG CAPSULE PO SCH (09:00)
== END 2022-03-04 01:35 | disposition home or self-care (01) ==
LOC: EMS 20:43
DX: R10.9 Unspecified abdominal pain (principal); N18.6 End stage renal disease; E78.00 Pure hypercholesterolemia, unspecified; I10 Essential (primary) hypertension; Z99.2 Dependence on renal dialysis; Z98.890 Other specified postprocedural states; Z20.822 Contact with and (suspected) exposure to COVID-19
CPT/HCPCS: 99285; 74176; 87426; 80053; 83690; 84484; 85025; 36415; 93005; J7040

== ENCOUNTER 2022-06-02 19:21 | Emergency (ER) | payer MEDICARE, OTHER ==
[~2022-06-02] VITALS: Ht 162.6 cm; Wt 72.7 kg
[2022-06-02 23:04] VITALS: BP 167/73
== END 2022-06-02 23:54 | disposition left against medical advice (07) ==
LOC: EMS 19:24
DX: R06.02 Shortness of breath (principal); Z53.21 Procedure and treatment not carried out due to patient leaving prior to being seen by health care provider
CPT/HCPCS: 93005

== ENCOUNTER 2023-02-03 12:16 | Emergency (ER) | payer MEDICARE, OTHER ==
[~2023-02-03] VITALS: Ht 170.2 cm; Wt 65.9 kg
[2023-02-03] MEDS ORDERED: 0.9% SODIUM CHLORIDE 10 ML SYRINGE IVP PRN (12:30)
[2023-02-03] MEDS ORDERED: CefTRIAXone 1 GM/DEXTROSE 50 ML IV ONE (12:30)
[2023-02-03 13:02] LABS: BASOPHILS % (AUTO) 0.9 % (0.0-2.0); EOSINOPHILS % (AUTO) 0.1 % (1.0-6.0); HEMATOCRIT 34.2 % (41-53); HEMOGLOBIN 11.1 g/dL (13.5-17.5); LYMPHOCYTES # (AUTO) 0.1 K/uL (1.0-4.8); LYMPHOCYTES % (AUTO) 0.9 % (22.0-44.0); MEAN CORPUSCULAR HEMOGLOBIN 29.7 pg (26.0-34.0); MEAN CORPUSCULAR HGB CONC 32.3 G/dL (31.0-37.0); MEAN CORPUSCULAR VOLUME 92 fL (80-100); MONOCYTES # (AUTO) 0.8 K/uL (0.1-1.0); MONOCYTES % (AUTO) 5.6 % (2.0-9.0); NEUTROPHILS # (AUTO) 12.5 K/uL (1.8-7.7); NEUTROPHILS % (AUTO) 92.5 % (40.0-70.0); PLATELET COUNT (AUTO) 179 K/uL (150-450); RED BLOOD CELL COUNT(AUTO) 3.73 MIL/uL (4.50-5.90)
[2023-02-03 13:11] LABS: ANION GAP 9 mmol/L (8-16); CALCIUM, TOTAL 9.2 mg/dL (8.8-10.5); CARBON DIOXIDE 30 mmol/L (22-29); CHLORIDE 97 mmol/L (98-107); CREATININE 4.85 mg/dL (0.60-1.30); GLOMERULAR FILTR. RATE CALC 11 mL/min (>60); GLUCOSE,RANDOM 169 mg/dL (70-110); POTASSIUM 3.6 mmol/L (3.5-5.1); SODIUM SERUM 136 mmol/L (136-145)
[2023-02-03 13:18] LABS: INR 1.1 (0.9-1.1); PROTHROMBIN TIME 11.8 SEC (9.4-11.6)
[2023-02-03 13:20] LABS: LACTIC ACID 2.2 mmol/L (0.4-2.0)
[2023-02-03 13:23] LABS: ALANINE AMINOTRANSFERASE 18 U/L (12-78); ALKALINE PHOSPHATASE 265 U/L (46-116); ASPARTATE AMINOTRANSFERASE 33 U/L (15-37); BILIRUBIN,TOTAL 0.8 mg/dL (0.1-1.0); TOTAL PROTEIN, SERUM 7.1 g/dL (6.4-8.2)
[2023-02-03] MEDS: ACETAMINOPHEN 500 MG TABLET PO ONE ×2 (13:28→13:56)
[2023-02-03] MEDS ORDERED: ACETAMINOPHEN 1000 MG/ISO-OSM 100 ML IV ONE (13:45)
[2023-02-03] MEDS ORDERED: SODIUM CHLORIDE 0.9% 500 ML IV ONE (15:00)
[2023-02-03 15:05] VITALS: TEMP 99.4
[2023-02-03 17:24] VITALS: BP 125/85; PULSE 92; RESP 20
== END 2023-02-03 17:30 | disposition home or self-care (01) ==
LOC: EMS 12:23
DX: B34.9 Viral infection, unspecified (principal); I12.0 Hypertensive chronic kidney disease with stage 5 chronic kidney disease or end stage renal disease; N18.6 End stage renal disease; Z99.2 Dependence on renal dialysis; D64.9 Anemia, unspecified; R73.9 Hyperglycemia, unspecified; E78.00 Pure hypercholesterolemia, unspecified; Z98.890 Other specified postprocedural states
CPT/HCPCS: 99285; 74176; 96365; 71045; 96361; 96366; 80053; 83605; 85025; 85610; 87040; 87205; 36415; 87077; 93005; 96368; 84145; J0696; J0131

== ENCOUNTER 2023-02-04 09:57 | Inpatient (IN) | payer MEDICARE, OTHER ==
[~2023-02-04] VITALS: Ht 162.6 cm; Wt 62.0 kg
[2023-02-04] MEDS ORDERED: VANCOMYCIN 1GM/WATER(PEG/NADA) 200 ML IV ONE (10:45)
[2023-02-04] MEDS ORDERED: ONDANSETRON HCL 4 MG/2 ML VIAL IVP PRN ×2 (10:45→20:15)
[2023-02-04 10:59] LABS: BASOPHILS % (AUTO) 0.1 % (0.0-2.0); EOSINOPHILS % (AUTO) 0.5 % (1.0-6.0); HEMATOCRIT 37.2 % (41-53); HEMOGLOBIN 12.2 g/dL (13.5-17.5); LYMPHOCYTES # (AUTO) 0.2 K/uL (1.0-4.8); LYMPHOCYTES % (AUTO) 1.8 % (22.0-44.0); MEAN CORPUSCULAR HEMOGLOBIN 30.4 pg (26.0-34.0); MEAN CORPUSCULAR HGB CONC 32.8 G/dL (31.0-37.0); MEAN CORPUSCULAR VOLUME 93 fL (80-100); MONOCYTES # (AUTO) 0.6 K/uL (0.1-1.0); MONOCYTES % (AUTO) 4.8 % (2.0-9.0); NEUTROPHILS # (AUTO) 11.2 K/uL (1.8-7.7); NEUTROPHILS % (AUTO) 92.8 % (40.0-70.0); PLATELET COUNT (AUTO) 183 K/uL (150-450); RED BLOOD CELL COUNT(AUTO) 4.01 MIL/uL (4.50-5.90); RED CELL DISTRIBUTION WIDTH 16.4 % (11.5-14.5)
[2023-02-04] MEDS ORDERED: CefTRIAXone 1 GM/DEXTROSE 50 ML IV SCH (11:00)
[2023-02-04] MEDS ORDERED: VANCOMYCIN 1GM/WATER(PEG/NADA) 200 ML IV PRN (11:30)
[2023-02-04 11:33] LABS: LACTIC ACID 3.3 mmol/L (0.4-2.0)
[2023-02-04] MEDS ORDERED: ONDANSETRON HCL 4 MG/2 ML VIAL IVP ONE (12:00)
[2023-02-04] MEDS ORDERED: 0.9% SODIUM CHLORIDE 10 ML VIAL IVP ONE (12:00)
[2023-02-04] MEDS ORDERED: FentaNYL CITRATE PF 100 MCG/2 ML VIAL IVP ONE (12:00)
[2023-02-04] MEDS ORDERED: ROCURONIUM BROMIDE 10 MG/ML 5 ML VIAL IVP ONE (12:00)
[2023-02-04] MEDS ORDERED: LIDOCAINE/PF 2% 5 ML VIAL IM ONE ×2 (12:00)
[2023-02-04] MEDS ORDERED: PHENYLEPHRINE HCL 10 MG/ML VIAL IVP ONE (12:00)
[2023-02-04] MEDS ORDERED: SUGAMMADEX SODIUM 200 MG/2 ML VIAL IVP ONE (12:00)
[2023-02-04 12:51] LABS: CALCIUM, TOTAL 10.3 mg/dL (8.8-10.5); POTASSIUM 4.2 mmol/L (3.5-5.1)
[2023-02-04 12:58] LABS: ALBUMIN 2.2 g/dL (3.4-5.0); BILIRUBIN,TOTAL 0.5 mg/dL (0.1-1.0); TOTAL PROTEIN, SERUM 7.6 g/dL (6.4-8.2)
[2023-02-04] MEDS ORDERED: SODIUM CHLORIDE 0.9% 500 ML IV ONE ×2 (14:00→16:44)
[2023-02-04] MEDS ORDERED: GELATIN SPONGE,ABSORBABLE 50 MM TP ONE (14:15)
[2023-02-04] MEDS: HEPARIN SODIUM,PORCINE 5,000 UNITS/ML VIAL SQ SCH (15:36)
[2023-02-04] MEDS ORDERED: SODIUM CHLORIDE 0.9% 1,000 ML ONE ×2 (15:42→17:09)
[2023-02-04 15:44] LABS: INR 1.1 (0.9-1.1); PROTHROMBIN TIME 11.9 SEC (9.4-11.6)
[2023-02-04] MEDS ORDERED: ACETAMINOPHEN 1000 MG/ISO-OSM 100 ML IV ONE (16:15)
[2023-02-04] MEDS ORDERED: LIDOCAINE/PF 1% 30 ML VIAL ONE (16:17)
[2023-02-04] MEDS ORDERED: HEPARIN SODIUM,PORCINE 5,000 UNITS/ML VIAL ONE (16:28)
[2023-02-04] MEDS ORDERED: SODIUM CHLORIDE 0.9% 100 ML ONE (16:41)
[2023-02-04] MEDS ORDERED: PHENYLEPHRINE 200 MG/D5%-WATER 250 ML IV PRN (17:00)
[2023-02-04 17:01] LABS: LACTIC ACID 2.1 mmol/L (0.4-2.0)
[2023-02-04 17:51] LABS: ABG BASE EXCESS 2.9 mmol/L (-2.0-3.0); ABG CARBOXYHEMOGLOBIN 0.4 % (0.0-1.5); ABG HCO3 27.1 mmol/L (22.0-26.0); ABG METHEMOGLOBIN 0.3 % (0.0-1.5); ABG OXYGEN CONTENT 17.6 mL/dL (15.0-23.0); ABG OXYGEN SATURATION 99.7 % (95.0-98.0); ABG PCO2 38 mmHg (35-45); ABG PH 7.462 (7.35-7.450); PO2, ARTERIAL BG 349.9 mmHg (71.0-79.0); SOURCE, BLOOD GAS ARTERIAL; TEMPERATURE, FAHRENHEIT, BG 99.2 FAHREN (96.0-98.6)
[2023-02-04 17:53] LABS: O2 DEVICE,BLOOD GAS SIMPLE MASK (ROOM AIR); SITE, BLOOD GAS ARTERIAL LINE
[2023-02-04 20:00] VITALS: BP 176/74; PULSE 93; RESP 27; TEMP 97.7
[2023-02-04] MEDS ORDERED: 0.9% SODIUM CHLORIDE 10 ML SYRINGE IVP PRN (20:15)
[2023-02-04] MEDS ORDERED: HYDROmorphone HCL 2 MG/ML SYRINGE IVP PRN (20:15)
[2023-02-04 20:36] VITALS: BP 160/70; PULSE 100; RESP 30; TEMP 97.7
[2023-02-04 21:19] LABS: BASOPHILS % (AUTO) 0.1 % (0.0-2.0); EOSINOPHILS % (AUTO) 1.9 % (1.0-6.0); HEMATOCRIT 31.6 % (41-53); HEMOGLOBIN 10.3 g/dL (13.5-17.5); LYMPHOCYTES # (AUTO) 0.5 K/uL (1.0-4.8); LYMPHOCYTES % (AUTO) 4.3 % (22.0-44.0); MEAN CORPUSCULAR HEMOGLOBIN 30.1 pg (26.0-34.0); MEAN CORPUSCULAR HGB CONC 32.8 G/dL (31.0-37.0); MEAN CORPUSCULAR VOLUME 92 fL (80-100); MONOCYTES # (AUTO) 0.9 K/uL (0.1-1.0); MONOCYTES % (AUTO) 8.8 % (2.0-9.0); NEUTROPHILS % (AUTO) 84.9 % (40.0-70.0); PLATELET COUNT (AUTO) 184 K/uL (150-450); RED BLOOD CELL COUNT(AUTO) 3.43 MIL/uL (4.50-5.90); RED CELL DISTRIBUTION WIDTH 16.4 % (11.5-14.5)
[2023-02-04 21:33] LABS: ALBUMIN 1.8 g/dL (3.4-5.0); BILIRUBIN,TOTAL 0.4 mg/dL (0.1-1.0); CALCIUM, TOTAL 9.1 mg/dL (8.8-10.5); CREATININE 7.48 mg/dL (0.60-1.30); POTASSIUM 4.3 mmol/L (3.5-5.1); TOTAL PROTEIN, SERUM 6.6 g/dL (6.4-8.2)
[2023-02-04 21:36] VITALS: BP 130/62; PULSE 100; RESP 26; TEMP 97.7
[2023-02-04] MEDS: DOCUSATE SODIUM 100 MG CAPSULE PO SCH (21:44)
[2023-02-04] MEDS: ETHYL ALCOHOL 62% ANTISEPTIC NASAL SANITIZER 0.6 ML AMPUL NASAL SCH (22:19)
[2023-02-05] VITALS (8 sets, daily range): BP systolic 118–182; BP diastolic 53–82; PULSE 68–127; RESP 24–27; TEMP 97.5–100.1
[2023-02-05] MEDS: HYDROCODONE/ACETAMINOPHEN 5-325 MG TABLET PO PRN ×2 (00:30→08:05)
[2023-02-05] MEDS: HEPARIN SODIUM,PORCINE 5,000 UNITS/ML VIAL SQ SCH ×4 (08:05→23:32)
[2023-02-05] MEDS: FAMOTIDINE 20 MG TABLET PO SCH (08:06)
[2023-02-05] MEDS: DOCUSATE SODIUM 100 MG CAPSULE PO SCH ×2 (08:06→20:23)
[2023-02-05] MEDS: ETHYL ALCOHOL 62% ANTISEPTIC NASAL SANITIZER 0.6 ML AMPUL NASAL SCH ×2 (08:06→20:23)
[2023-02-05] MEDS: ACETAMINOPHEN 325 MG TABLET PO PRN (20:23)
[2023-02-05] MEDS ORDERED: AmLODIPine BESYLATE 10 MG TABLET PO ONE (21:00)
[2023-02-05] MEDS: CloNIDine HCL 0.1 MG TABLET PO PRN (23:32)
[2023-02-06] VITALS (7 sets, daily range): BP systolic 134–176; BP diastolic 59–78; PULSE 75–98; TEMP 99–101.4
[2023-02-06 05:24] LABS: BASOPHILS % (AUTO) 0.2 % (0.0-2.0); EOSINOPHILS % (AUTO) 4.6 % (1.0-6.0); LYMPHOCYTES # (AUTO) 0.6 K/uL (1.0-4.8); LYMPHOCYTES % (AUTO) 9.2 % (22.0-44.0); MEAN CORPUSCULAR HEMOGLOBIN 29.6 pg (26.0-34.0); MEAN CORPUSCULAR HGB CONC 32.3 G/dL (31.0-37.0); MEAN CORPUSCULAR VOLUME 92 fL (80-100); MONOCYTES # (AUTO) 0.9 K/uL (0.1-1.0); NEUTROPHILS # (AUTO) 5.2 K/uL (1.8-7.7); PLATELET COUNT (AUTO) 213 K/uL (150-450); RED BLOOD CELL COUNT(AUTO) 3.05 MIL/uL (4.50-5.90); RED CELL DISTRIBUTION WIDTH 15.8 % (11.5-14.5)
[2023-02-06 05:39] LABS: ALBUMIN 1.6 g/dL (3.4-5.0); BILIRUBIN,TOTAL 0.4 mg/dL (0.1-1.0); CALCIUM, TOTAL 9.2 mg/dL (8.8-10.5); CREATININE 9.26 mg/dL (0.60-1.30); POTASSIUM 5.4 mmol/L (3.5-5.1); TOTAL PROTEIN, SERUM 6.2 g/dL (6.4-8.2); VANCOMYCIN,RANDOM 12.8 mcg/mL (25.0-50.0)
[2023-02-06] MEDS: ETHYL ALCOHOL 62% ANTISEPTIC NASAL SANITIZER 0.6 ML AMPUL NASAL SCH ×2 (09:05→21:31)
[2023-02-06] MEDS: DOCUSATE SODIUM 100 MG CAPSULE PO SCH ×2 (09:05→21:31)
[2023-02-06] MEDS: FAMOTIDINE 20 MG TABLET PO SCH (09:06)
[2023-02-06] MEDS: HEPARIN SODIUM,PORCINE 5,000 UNITS/ML VIAL SQ SCH ×2 (09:06→16:32)
[2023-02-06] MEDS: AmLODIPine BESYLATE 10 MG TABLET PO SCH (09:06)
[2023-02-06] MEDS ORDERED: SODIUM ZIRCONIUM CYCLOSILICATE 5 GM POWDER PACKET PO ONE (10:45)
[2023-02-06] MEDS ORDERED: VANCOMYCIN 1GM/WATER(PEG/NADA) 200 ML IV ONE (12:00)
[2023-02-06] MEDS: CloNIDine HCL 0.1 MG TABLET PO PRN (21:39)
[2023-02-06] MEDS: HYDROCODONE/ACETAMINOPHEN 5-325 MG TABLET PO PRN (22:38)
[2023-02-07] VITALS (15 sets, daily range): BP systolic 138–188; BP diastolic 48–75; PULSE 71–100; RESP 17–18; TEMP 97–99.2
[2023-02-07] MEDS: HEPARIN SODIUM,PORCINE 5,000 UNITS/ML VIAL SQ SCH ×4 (00:44→23:33)
[2023-02-07 05:30] LABS: CALCIUM, TOTAL 9.5 mg/dL (8.8-10.5); CREATININE 10.93 mg/dL (0.60-1.30)
[2023-02-07] MEDS ORDERED: DEXTROSE 50%-WATER 25 GM/50 ML SYRINGE IVP ONE ×2 (05:45→06:30)
[2023-02-07] MEDS ORDERED: SODIUM POLYSTYRENE SULFONATE 15 GM/60 ML SUSPENSION BOTTLE PO ONE (05:45)
[2023-02-07] MEDS ORDERED: INSULIN REGULAR, HUMAN 100 UNITS/ML IVP ONE (05:45)
[2023-02-07] MEDS: DOCUSATE SODIUM 100 MG CAPSULE PO SCH ×2 (09:00→20:52)
[2023-02-07] MEDS: FAMOTIDINE 20 MG TABLET PO SCH (09:25)
[2023-02-07] MEDS: ETHYL ALCOHOL 62% ANTISEPTIC NASAL SANITIZER 0.6 ML AMPUL NASAL SCH ×2 (09:26→20:52)
[2023-02-07] MEDS: AmLODIPine BESYLATE 10 MG TABLET PO SCH (09:26)
[2023-02-07] MEDS: CloNIDine HCL 0.1 MG TABLET PO PRN ×2 (10:40→20:52)
[2023-02-07] MEDS ORDERED: HEPARIN SODIUM,PORCINE 1,000 UNITS/ML VIAL IVP ONE (20:44)
[2023-02-08] VITALS (15 sets, daily range): BP systolic 130–163; BP diastolic 57–84; PULSE 69–90; RESP 16–18; TEMP 97–99
[2023-02-08 05:52] LABS: CREATININE 7.13 mg/dL (0.60-1.30); VANCOMYCIN,RANDOM 20.8 mcg/mL (25.0-50.0)
[2023-02-08] MEDS: HEPARIN SODIUM,PORCINE 5,000 UNITS/ML VIAL SQ SCH ×3 (08:32→23:45)
[2023-02-08] MEDS: AmLODIPine BESYLATE 10 MG TABLET PO SCH (08:33)
[2023-02-08] MEDS: FAMOTIDINE 20 MG TABLET PO SCH (08:33)
[2023-02-08] MEDS: ETHYL ALCOHOL 62% ANTISEPTIC NASAL SANITIZER 0.6 ML AMPUL NASAL SCH ×2 (08:33→20:59)
[2023-02-08] MEDS: DOCUSATE SODIUM 100 MG CAPSULE PO SCH ×2 (08:33→20:59)
[2023-02-08] MEDS ORDERED: HEPARIN SODIUM,PORCINE 1,000 UNITS/ML VIAL IVCATH ONE ×2 (10:45)
[2023-02-08] MEDS: FOLIC ACID/VIT B COMPLEX AND C TABLET PO SCH (13:51)
[2023-02-08] MEDS: HYDROCODONE/ACETAMINOPHEN 5-325 MG TABLET PO PRN (14:02)
[2023-02-08] MEDS ORDERED: VANCOMYCIN HCL 750 MG in DEXTROSE 5%-WATER 250 ML IV ONE (16:00)
[2023-02-08] MEDS: CeFAZolin 1 GM/DEXTROSE 50 ML IV SCH (16:42)
[2023-02-08] MEDS ORDERED: HEPARIN SODIUM,PORCINE 1,000 UNITS/ML VIAL ONE (17:12)
[2023-02-09] VITALS (9 sets, daily range): BP systolic 144–170; BP diastolic 62–85; PULSE 75–96; RESP 16–19; TEMP 98.1–100
[2023-02-09] MEDS: DOCUSATE SODIUM 100 MG CAPSULE PO SCH ×2 (09:00→20:21)
[2023-02-09] MEDS: HYDROCODONE/ACETAMINOPHEN 5-325 MG TABLET PO PRN ×2 (09:14→13:04)
[2023-02-09] MEDS: AmLODIPine BESYLATE 10 MG TABLET PO SCH (09:15)
[2023-02-09] MEDS: FAMOTIDINE 20 MG TABLET PO SCH (09:15)
[2023-02-09] MEDS: ETHYL ALCOHOL 62% ANTISEPTIC NASAL SANITIZER 0.6 ML AMPUL NASAL SCH ×2 (09:15→20:21)
[2023-02-09] MEDS: FOLIC ACID/VIT B COMPLEX AND C TABLET PO SCH (09:15)
[2023-02-09] MEDS: HEPARIN SODIUM,PORCINE 5,000 UNITS/ML VIAL SQ SCH ×3 (09:16→23:34)
[2023-02-09] MEDS: CeFAZolin 1 GM/DEXTROSE 50 ML IV SCH (16:18)
[2023-02-09] MEDS: MELATONIN 3 MG TABLET PO PRN (23:33)
[2023-02-10] VITALS (13 sets, daily range): BP systolic 148–186; BP diastolic 67–91; PULSE 79–95; RESP 18–20; TEMP 97–98.5
[2023-02-10] MEDS ORDERED: SODIUM CHLORIDE 0.9% 2,000 ML ONE (07:50)
[2023-02-10] MEDS: HEPARIN SODIUM,PORCINE 5,000 UNITS/ML VIAL SQ SCH ×3 (08:00→23:26)
[2023-02-10] MEDS: EPOETIN ALFA 10,000 UNITS/ML VIAL SQ SCH (12:28)
[2023-02-10] MEDS: ETHYL ALCOHOL 62% ANTISEPTIC NASAL SANITIZER 0.6 ML AMPUL NASAL SCH ×2 (12:28→20:54)
[2023-02-10] MEDS: AmLODIPine BESYLATE 10 MG TABLET PO SCH (12:29)
[2023-02-10] MEDS: FOLIC ACID/VIT B COMPLEX AND C TABLET PO SCH (12:29)
[2023-02-10] MEDS: FAMOTIDINE 20 MG TABLET PO SCH (12:29)
[2023-02-10] MEDS: DOCUSATE SODIUM 100 MG CAPSULE PO SCH ×2 (12:29→21:00)
[2023-02-10] MEDS ORDERED: HEPARIN SODIUM,PORCINE 1,000 UNITS/ML VIAL IVP ONE (14:33)
[2023-02-10] MEDS: CeFAZolin 1 GM/DEXTROSE 50 ML IV SCH (16:26)
[2023-02-10 17:48] LABS: GLUCOMETER DEV NAME(LOC) 5N.1C
[2023-02-10] MEDS: HYDROCODONE/ACETAMINOPHEN 5-325 MG TABLET PO PRN (20:55)
[2023-02-11] VITALS (7 sets, daily range): BP systolic 131–173; BP diastolic 56–83; PULSE 78–90; RESP 18–20; TEMP 98–98.9
[2023-02-11 07:09] LABS: BASOPHILS % (AUTO) 0.7 % (0.0-2.0); EOSINOPHILS % (AUTO) 6.2 % (1.0-6.0); HEMATOCRIT 28.2 % (41-53); HEMOGLOBIN 9.4 g/dL (13.5-17.5); LYMPHOCYTES # (AUTO) 0.7 K/uL (1.0-4.8); LYMPHOCYTES % (AUTO) 12.4 % (22.0-44.0); MEAN CORPUSCULAR HEMOGLOBIN 30.4 pg (26.0-34.0); MEAN CORPUSCULAR HGB CONC 33.3 G/dL (31.0-37.0); MEAN CORPUSCULAR VOLUME 91 fL (80-100); MONOCYTES # (AUTO) 0.8 K/uL (0.1-1.0); MONOCYTES % (AUTO) 13.6 % (2.0-9.0); NEUTROPHILS # (AUTO) 3.8 K/uL (1.8-7.7); NEUTROPHILS % (AUTO) 67.1 % (40.0-70.0); PLATELET COUNT (AUTO) 350 K/uL (150-450); RED BLOOD CELL COUNT(AUTO) 3.09 MIL/uL (4.50-5.90); RED CELL DISTRIBUTION WIDTH 15.9 % (11.5-14.5)
[2023-02-11 07:27] LABS: CALCIUM, TOTAL 9.6 mg/dL (8.8-10.5); CREATININE 6.47 mg/dL (0.60-1.30); POTASSIUM 4.7 mmol/L (3.5-5.1)
[2023-02-11 07:58] LABS: GLUCOMETER DEV NAME(LOC) 5N.1C
[2023-02-11] MEDS: AmLODIPine BESYLATE 10 MG TABLET PO SCH (08:18)
[2023-02-11] MEDS: FAMOTIDINE 20 MG TABLET PO SCH (08:18)
[2023-02-11] MEDS: HYDROCODONE/ACETAMINOPHEN 5-325 MG TABLET PO PRN ×4 (08:18→21:28)
[2023-02-11] MEDS: DOCUSATE SODIUM 100 MG CAPSULE PO SCH ×2 (08:19→21:28)
[2023-02-11] MEDS: FOLIC ACID/VIT B COMPLEX AND C TABLET PO SCH (08:19)
[2023-02-11] MEDS: HEPARIN SODIUM,PORCINE 5,000 UNITS/ML VIAL SQ SCH ×3 (08:19→23:26)
[2023-02-11] MEDS: ETHYL ALCOHOL 62% ANTISEPTIC NASAL SANITIZER 0.6 ML AMPUL NASAL SCH ×2 (08:19→21:28)
[2023-02-11] MEDS: CeFAZolin 1 GM/DEXTROSE 50 ML IV SCH (16:53)
[2023-02-11] MEDS: CloNIDine HCL 0.1 MG TABLET PO PRN (23:26)
[2023-02-12] VITALS (13 sets, daily range): BP systolic 151–171; BP diastolic 64–83; PULSE 69–89; RESP 16–20; TEMP 97.6–99.2
[2023-02-12] MEDS: ETHYL ALCOHOL 62% ANTISEPTIC NASAL SANITIZER 0.6 ML AMPUL NASAL SCH ×2 (08:22→20:52)
[2023-02-12] MEDS: FOLIC ACID/VIT B COMPLEX AND C TABLET PO SCH (08:22)
[2023-02-12] MEDS: HEPARIN SODIUM,PORCINE 5,000 UNITS/ML VIAL SQ SCH ×3 (08:22→23:42)
[2023-02-12] MEDS: DOCUSATE SODIUM 100 MG CAPSULE PO SCH ×2 (08:22→20:52)
[2023-02-12] MEDS: AmLODIPine BESYLATE 10 MG TABLET PO SCH (08:22)
[2023-02-12] MEDS: FAMOTIDINE 20 MG TABLET PO SCH (08:22)
[2023-02-12] MEDS: EPOETIN ALFA 10,000 UNITS/ML VIAL SQ SCH (15:00)
[2023-02-12] MEDS: CeFAZolin 1 GM/DEXTROSE 50 ML IV SCH (16:32)
[2023-02-12] MEDS ORDERED: HEPARIN SODIUM,PORCINE 1,000 UNITS/ML VIAL IVP ONE (17:27)
[2023-02-12 20:34] LABS: SPECIMENTYPE,BODY FLUID SYNOVIAL
[2023-02-12] MEDS: HYDROCODONE/ACETAMINOPHEN 5-325 MG TABLET PO PRN (20:53)
[2023-02-12 21:52] LABS: APPEARANCE,UNSPUN,BODY FLUID TURBID (CLEAR); COLOR,BODY FLUID YELLOW (LT YELLOW); TOTAL VOLUME,BODY FLUID 60 mL
[2023-02-12 21:53] LABS: BASOPHILS,BODY FLUID 0 %; CRYSTALS, SYNOVIAL FLUID None Seen (None Seen); EOSINOPHILS,BF (ANAL) 0 %; LYMPHOCYTES,BODY FLUID 0 %; MONOCYTES,BODY FLUID 10 %; NEUTROPHILS,BODY FLUID 90 %; WBC, BODY FLUID 18490 /cu. mm.
[2023-02-12 21:57] LABS: APPEARANCE,SPUN,BODY FLUID CLEAR (CLEAR)
[2023-02-13 05:40] VITALS: BP 167/66; PULSE 86; RESP 18; TEMP 98.2
[2023-02-13 07:24] VITALS: BP 151/67; PULSE 85; RESP 18; TEMP 97.7
[2023-02-13] MEDS: FOLIC ACID/VIT B COMPLEX AND C TABLET PO SCH (08:50)
[2023-02-13] MEDS: AmLODIPine BESYLATE 10 MG TABLET PO SCH (08:50)
[2023-02-13] MEDS: ETHYL ALCOHOL 62% ANTISEPTIC NASAL SANITIZER 0.6 ML AMPUL NASAL SCH ×2 (08:50→20:45)
[2023-02-13] MEDS: DOCUSATE SODIUM 100 MG CAPSULE PO SCH ×2 (08:50→20:45)
[2023-02-13] MEDS: HEPARIN SODIUM,PORCINE 5,000 UNITS/ML VIAL SQ SCH ×3 (08:51→23:59)
[2023-02-13] MEDS: HYDROCODONE/ACETAMINOPHEN 5-325 MG TABLET PO PRN (08:51)
[2023-02-13] MEDS: FAMOTIDINE 20 MG TABLET PO SCH (08:53)
[2023-02-13 11:15] VITALS: BP 150/65; PULSE 88; RESP 19; TEMP 98.4
[2023-02-13] MEDS: BISACODYL 10 MG RECTAL RECTAL SUPPOSITORY PR PRN (12:24)
[2023-02-13 15:54] VITALS: BP 149/70; PULSE 81; RESP 18; TEMP 98
[2023-02-13] MEDS: CeFAZolin 1 GM/DEXTROSE 50 ML IV SCH (17:03)
[2023-02-13 19:18] VITALS: BP 157/62; PULSE 80; RESP 17; TEMP 98.8
[2023-02-13 23:38] VITALS: BP 165/61; PULSE 81; RESP 19; TEMP 98.8
[2023-02-13] MEDS: CloNIDine HCL 0.1 MG TABLET PO PRN (23:59)
[2023-02-14 04:07] VITALS: BP 160/62; PULSE 79; RESP 18; TEMP 97.8
[2023-02-14 07:39] VITALS: BP 153/71; PULSE 70; RESP 18; TEMP 98.3
[2023-02-14] MEDS: FAMOTIDINE 20 MG TABLET PO SCH (08:52)
[2023-02-14] MEDS: HEPARIN SODIUM,PORCINE 5,000 UNITS/ML VIAL SQ SCH ×3 (08:52→23:56)
[2023-02-14] MEDS: FOLIC ACID/VIT B COMPLEX AND C TABLET PO SCH (08:52)
[2023-02-14] MEDS: DOCUSATE SODIUM 100 MG CAPSULE PO SCH ×2 (08:53→20:32)
[2023-02-14] MEDS: AmLODIPine BESYLATE 10 MG TABLET PO SCH (08:53)
[2023-02-14] MEDS: ETHYL ALCOHOL 62% ANTISEPTIC NASAL SANITIZER 0.6 ML AMPUL NASAL SCH ×2 (08:53→20:32)
[2023-02-14 11:24] VITALS: BP 154/64; PULSE 75; RESP 16; TEMP 98.3
[2023-02-14 15:38] VITALS: BP 162/65; PULSE 78; RESP 16; TEMP 99.2
[2023-02-14] MEDS: HYDROCODONE/ACETAMINOPHEN 5-325 MG TABLET PO PRN ×2 (15:52→20:33)
[2023-02-14] MEDS: CeFAZolin 1 GM/DEXTROSE 50 ML IV SCH (16:19)
[2023-02-14 17:00] VITALS: BP 153/56; PULSE 72; RESP 18; TEMP 98.6
[2023-02-14 20:14] VITALS: BP 149/60; PULSE 75; RESP 19; TEMP 98.4
[2023-02-15] VITALS (15 sets, daily range): BP systolic 137–191; BP diastolic 56–74; PULSE 62–84; RESP 18–20; TEMP 96.8–98.7
[2023-02-15] MEDS: HYDROCODONE/ACETAMINOPHEN 5-325 MG TABLET PO PRN ×2 (01:10→20:56)
[2023-02-15] MEDS: CloNIDine HCL 0.1 MG TABLET PO PRN ×2 (05:50→20:56)
[2023-02-15 07:20] LABS: BASOPHILS % (AUTO) 0.4 % (0.0-2.0); EOSINOPHILS % (AUTO) 6.1 % (1.0-6.0); HEMATOCRIT 29.6 % (41-53); HEMOGLOBIN 9.9 g/dL (13.5-17.5); LYMPHOCYTES # (AUTO) 0.9 K/uL (1.0-4.8); LYMPHOCYTES % (AUTO) 11.2 % (22.0-44.0); MEAN CORPUSCULAR HEMOGLOBIN 30.5 pg (26.0-34.0); MEAN CORPUSCULAR HGB CONC 33.4 G/dL (31.0-37.0); MEAN CORPUSCULAR VOLUME 91 fL (80-100); MONOCYTES # (AUTO) 0.7 K/uL (0.1-1.0); MONOCYTES % (AUTO) 8.8 % (2.0-9.0); NEUTROPHILS # (AUTO) 5.7 K/uL (1.8-7.7); NEUTROPHILS % (AUTO) 73.5 % (40.0-70.0); PLATELET COUNT (AUTO) 453 K/uL (150-450); RED BLOOD CELL COUNT(AUTO) 3.25 MIL/uL (4.50-5.90); RED CELL DISTRIBUTION WIDTH 16.6 % (11.5-14.5)
[2023-02-15 07:40] LABS: CALCIUM, TOTAL 9.7 mg/dL (8.8-10.5); CREATININE 10.27 mg/dL (0.60-1.30); MAGNESIUM 2.7 mg/dL (1.80-2.40); PHOSPHORUS 7.4 mg/dL (2.5-4.9)
[2023-02-15] MEDS ORDERED: SODIUM CHLORIDE 0.9% 1,000 ML ONE (07:47)
[2023-02-15] MEDS: FAMOTIDINE 20 MG TABLET PO SCH (11:37)
[2023-02-15] MEDS: AmLODIPine BESYLATE 10 MG TABLET PO SCH (11:37)
[2023-02-15] MEDS: FOLIC ACID/VIT B COMPLEX AND C TABLET PO SCH (11:37)
[2023-02-15] MEDS: DOCUSATE SODIUM 100 MG CAPSULE PO SCH ×2 (11:37→20:56)
[2023-02-15] MEDS: ETHYL ALCOHOL 62% ANTISEPTIC NASAL SANITIZER 0.6 ML AMPUL NASAL SCH ×2 (11:38→20:56)
[2023-02-15] MEDS: HEPARIN SODIUM,PORCINE 5,000 UNITS/ML VIAL SQ SCH ×2 (11:39→15:23)
[2023-02-15] MEDS: EPOETIN ALFA 10,000 UNITS/ML VIAL SQ SCH (11:39)
[2023-02-15] MEDS ORDERED: SODIUM CHLORIDE 0.9% 250 ML IV ONE (15:08)
[2023-02-15] MEDS: CeFAZolin 1 GM/DEXTROSE 50 ML IV SCH (15:21)
[2023-02-15] MEDS: BISACODYL 10 MG RECTAL RECTAL SUPPOSITORY PR PRN (15:27)
[2023-02-15] MEDS ORDERED: HEPARIN SODIUM,PORCINE 1,000 UNITS/ML VIAL IVP ONE (17:44)
[2023-02-16] MEDS: HEPARIN SODIUM,PORCINE 5,000 UNITS/ML VIAL SQ SCH ×3 (00:06→16:54)
[2023-02-16 05:09] VITALS: BP 156/65; PULSE 68; RESP 19; TEMP 98
[2023-02-16 07:15] VITALS: BP 182/61; PULSE 67; RESP 18; TEMP 98
[2023-02-16] MEDS: DOCUSATE SODIUM 100 MG CAPSULE PO SCH ×2 (07:59→20:40)
[2023-02-16] MEDS: AmLODIPine BESYLATE 10 MG TABLET PO SCH (07:59)
[2023-02-16] MEDS: FAMOTIDINE 20 MG TABLET PO SCH (08:00)
[2023-02-16] MEDS: FOLIC ACID/VIT B COMPLEX AND C TABLET PO SCH (08:00)
[2023-02-16] MEDS: ETHYL ALCOHOL 62% ANTISEPTIC NASAL SANITIZER 0.6 ML AMPUL NASAL SCH ×2 (08:08→20:40)
[2023-02-16 09:01] LABS: GLUCOMETER DEV NAME(LOC) 5S.1B
[2023-02-16] MEDS: CloNIDine HCL 0.1 MG TABLET PO PRN ×2 (09:51→20:41)
[2023-02-16 09:52] LABS: INR 1.1 (0.9-1.1); PROTHROMBIN TIME 11.2 SEC (9.4-11.6)
[2023-02-16 11:28] VITALS: BP 169/67; PULSE 69; RESP 18; TEMP 98.7
[2023-02-16 12:39] VITALS: BP 137/60; PULSE 64
[2023-02-16] MEDS ORDERED: HEPARIN SODIUM 1000 UNITS/NS 500 ML ONE (13:38)
[2023-02-16] MEDS ORDERED: SODIUM BICARBONATE 50 MEQ/50 ML VIAL ONE (13:42)
[2023-02-16] MEDS ORDERED: LIDOCAINE/PF 1% 30 ML VIAL ONE (13:42)
[2023-02-16] MEDS ORDERED: FentaNYL CITRATE PF 100 MCG/2 ML VIAL ONE (14:09)
[2023-02-16] MEDS ORDERED: MIDAZOLAM HCL 2 MG/2 ML VIAL ONE (14:09)
[2023-02-16] MEDS ORDERED: BUPIVACAINE HCL/PF 0.5% 10 ML VIAL ONE (14:13)
[2023-02-16] MEDS ORDERED: LIDOCAINE/PF 2% 5 ML VIAL ONE (14:13)
[2023-02-16] MEDS ORDERED: IOHEXOL 300 MG/ML 50 ML VIAL ONE (14:17)
[2023-02-16] MEDS ORDERED: LIDOCAINE 1%/EPI 1:200,000/PF 10 ML VIAL ONE (14:17)
[2023-02-16] MEDS ORDERED: HEPARIN SODIUM,PORCINE 1,000 UNITS/ML 10 ML VIAL ONE (14:53)
[2023-02-16] MEDS ORDERED: FentaNYL CITRATE PF 100 MCG/2 ML VIAL IVP ONE ×2 (15:30)
[2023-02-16 16:10] VITALS: BP 145/55; PULSE 98; RESP 18; TEMP 98.4
[2023-02-16 16:13] LABS: GLUCOMETER DEV NAME(LOC) 5N.2C
[2023-02-16] MEDS: CeFAZolin 1 GM/DEXTROSE 50 ML IV SCH (16:58)
[2023-02-16] MEDS: HYDROCODONE/ACETAMINOPHEN 5-325 MG TABLET PO PRN (18:20)
[2023-02-16 20:00] VITALS: BP 176/58; PULSE 72; RESP 17; TEMP 98.2
[2023-02-16] MEDS: MELATONIN 3 MG TABLET PO PRN (20:41)
[2023-02-17] VITALS (16 sets, daily range): BP systolic 134–182; BP diastolic 56–94; PULSE 56–84; RESP 17–20; TEMP 97–100.8
[2023-02-17] MEDS: HYDROCODONE/ACETAMINOPHEN 5-325 MG TABLET PO PRN (00:26)
[2023-02-17] MEDS: HEPARIN SODIUM,PORCINE 5,000 UNITS/ML VIAL SQ SCH ×3 (00:26→15:36)
[2023-02-17] MEDS ORDERED: SODIUM CHLORIDE 0.9% 2,000 ML ONE (06:38)
[2023-02-17] MEDS ORDERED: HEPARIN SODIUM,PORCINE 1,000 UNITS/ML VIAL IVP ONE (12:00)
[2023-02-17] MEDS: FOLIC ACID/VIT B COMPLEX AND C TABLET PO SCH (12:26)
[2023-02-17] MEDS: DOCUSATE SODIUM 100 MG CAPSULE PO SCH ×2 (12:26→20:21)
[2023-02-17] MEDS: AmLODIPine BESYLATE 10 MG TABLET PO SCH (12:26)
[2023-02-17] MEDS: FAMOTIDINE 20 MG TABLET PO SCH (12:26)
[2023-02-17] MEDS: ETHYL ALCOHOL 62% ANTISEPTIC NASAL SANITIZER 0.6 ML AMPUL NASAL SCH ×2 (12:27→20:21)
[2023-02-17] MEDS: EPOETIN ALFA 10,000 UNITS/ML VIAL SQ SCH (12:28)
[2023-02-17] MEDS ORDERED: SODIUM CHLORIDE 0.9% 250 ML IV ONE (16:35)
[2023-02-17] MEDS: CeFAZolin 2 GM/DEXTROSE 50 ML IV SCH (16:45)
[2023-02-17] MEDS: CloNIDine HCL 0.1 MG TABLET PO PRN (16:45)
[2023-02-17] MEDS: ACETAMINOPHEN 325 MG TABLET PO PRN (20:21)
[2023-02-18] VITALS (8 sets, daily range): BP systolic 142–170; BP diastolic 65–70; PULSE 72–82; RESP 16–20; TEMP 98.1–99.6
[2023-02-18] MEDS: HEPARIN SODIUM,PORCINE 5,000 UNITS/ML VIAL SQ SCH ×4 (00:15→23:51)
[2023-02-18 06:03] LABS: GLUCOMETER DEV NAME(LOC) 5S.2C
[2023-02-18 07:26] LABS: BASOPHILS % (AUTO) 0.5 % (0.0-2.0); EOSINOPHILS % (AUTO) 5.3 % (1.0-6.0); HEMATOCRIT 28.9 % (41-53); HEMOGLOBIN 9.4 g/dL (13.5-17.5); LYMPHOCYTES # (AUTO) 0.6 K/uL (1.0-4.8); LYMPHOCYTES % (AUTO) 9.2 % (22.0-44.0); MEAN CORPUSCULAR HEMOGLOBIN 29.9 pg (26.0-34.0); MEAN CORPUSCULAR HGB CONC 32.6 G/dL (31.0-37.0); MEAN CORPUSCULAR VOLUME 92 fL (80-100); MONOCYTES # (AUTO) 0.7 K/uL (0.1-1.0); MONOCYTES % (AUTO) 11.7 % (2.0-9.0); NEUTROPHILS # (AUTO) 4.6 K/uL (1.8-7.7); NEUTROPHILS % (AUTO) 73.3 % (40.0-70.0); PLATELET COUNT (AUTO) 408 K/uL (150-450); RED BLOOD CELL COUNT(AUTO) 3.15 MIL/uL (4.50-5.90)
[2023-02-18 07:53] LABS: CALCIUM, TOTAL 9.6 mg/dL (8.8-10.5); CREATININE 5.73 mg/dL (0.60-1.30); MAGNESIUM 2.4 mg/dL (1.80-2.40); PHOSPHORUS 5.7 mg/dL (2.5-4.9); POTASSIUM 5.2 mmol/L (3.5-5.1)
[2023-02-18] MEDS: AmLODIPine BESYLATE 10 MG TABLET PO SCH (09:30)
[2023-02-18] MEDS: FAMOTIDINE 20 MG TABLET PO SCH (09:30)
[2023-02-18] MEDS: FOLIC ACID/VIT B COMPLEX AND C TABLET PO SCH (09:30)
[2023-02-18] MEDS: DOCUSATE SODIUM 100 MG CAPSULE PO SCH ×2 (09:30→20:56)
[2023-02-18] MEDS: HYDROCODONE/ACETAMINOPHEN 5-325 MG TABLET PO PRN (09:33)
[2023-02-18] MEDS: ETHYL ALCOHOL 62% ANTISEPTIC NASAL SANITIZER 0.6 ML AMPUL NASAL SCH ×2 (09:39→20:56)
[2023-02-18] MEDS: BISACODYL 10 MG RECTAL RECTAL SUPPOSITORY PR PRN (13:37)
[2023-02-18] MEDS: MELATONIN 3 MG TABLET PO PRN (22:02)
[2023-02-18] MEDS: CloNIDine HCL 0.1 MG TABLET PO PRN (23:51)
[2023-02-19] VITALS (13 sets, daily range): BP systolic 160–195; BP diastolic 55–82; PULSE 62–80; RESP 16–20; TEMP 97.6–99
[2023-02-19] MEDS ORDERED: SODIUM CHLORIDE 0.9% 250 ML IV ONE (07:58)
[2023-02-19] MEDS: ETHYL ALCOHOL 62% ANTISEPTIC NASAL SANITIZER 0.6 ML AMPUL NASAL SCH ×2 (08:46→20:24)
[2023-02-19] MEDS: EPOETIN ALFA 10,000 UNITS/ML VIAL SQ SCH (08:46)
[2023-02-19] MEDS: FAMOTIDINE 20 MG TABLET PO SCH (08:47)
[2023-02-19] MEDS: DOCUSATE SODIUM 100 MG CAPSULE PO SCH ×2 (08:47→20:24)
[2023-02-19] MEDS: AmLODIPine BESYLATE 10 MG TABLET PO SCH (08:47)
[2023-02-19] MEDS: FOLIC ACID/VIT B COMPLEX AND C TABLET PO SCH (08:47)
[2023-02-19] MEDS: HYDROCODONE/ACETAMINOPHEN 5-325 MG TABLET PO PRN (08:47)
[2023-02-19] MEDS: HEPARIN SODIUM,PORCINE 5,000 UNITS/ML VIAL SQ SCH ×2 (08:48→16:00)
[2023-02-19] MEDS: CeFAZolin 2 GM/DEXTROSE 50 ML IV SCH (08:48)
[2023-02-19] MEDS: CloNIDine HCL 0.1 MG TABLET PO PRN (16:14)
== END 2023-02-19 21:54 | disposition home health service (06) | DRG 252 ==
LOC: EMS 10:04 → ICUN 17:42 → ICU 19:50 → 5S 02-08 09:30
PROVIDERS: ADMIT Internal Medicine; ATTEND Internal Medicine
PROC: 03B80ZZ Excision of Left Brachial Artery, Open Approach (ICD-10-PCS; principal; 2023-02-04 17:00)
PROC: 5A1D70Z Performance of Urinary Filtration, Intermittent, Less than 6 Hours Per Day (ICD-10-PCS; 2023-02-07)
PROC: 02HV33Z Insertion of Infusion Device into Superior Vena Cava, Percutaneous Approach (ICD-10-PCS; 2023-02-07)
PROC: B548ZZA Ultrasonography of Superior Vena Cava, Guidance (ICD-10-PCS; 2023-02-07)
PROC: B543ZZA Ultrasonography of Right Jugular Veins, Guidance (ICD-10-PCS; 2023-02-07)
PROC: 5A1D70Z Performance of Urinary Filtration, Intermittent, Less than 6 Hours Per Day (ICD-10-PCS; 2023-02-08)
PROC: 5A1D70Z Performance of Urinary Filtration, Intermittent, Less than 6 Hours Per Day (ICD-10-PCS; 2023-02-10)
PROC: 0S9D3ZX Drainage of Left Knee Joint, Percutaneous Approach, Diagnostic (ICD-10-PCS; 2023-02-12)
PROC: 5A1D70Z Performance of Urinary Filtration, Intermittent, Less than 6 Hours Per Day (ICD-10-PCS; 2023-02-12)
PROC: 5A1D70Z Performance of Urinary Filtration, Intermittent, Less than 6 Hours Per Day (ICD-10-PCS; 2023-02-15)
PROC: 5A1D70Z Performance of Urinary Filtration, Intermittent, Less than 6 Hours Per Day (ICD-10-PCS; 2023-02-17)
PROC: 0JH63XZ Insertion of Tunneled Vascular Access Device into Chest Subcutaneous Tissue and Fascia, Percutaneous Approach (ICD-10-PCS; 2023-02-17)
PROC: 02H633Z Insertion of Infusion Device into Right Atrium, Percutaneous Approach (ICD-10-PCS; 2023-02-17)
PROC: B5181ZA Fluoroscopy of Superior Vena Cava using Low Osmolar Contrast, Guidance (ICD-10-PCS; 2023-02-17)
PROC: 5A1D70Z Performance of Urinary Filtration, Intermittent, Less than 6 Hours Per Day (ICD-10-PCS; 2023-02-19)
DX: T82.7XXA Infection and inflammatory reaction due to other cardiac and vascular devices, implants and grafts, initial encounter (principal); A41.1 Sepsis due to other specified staphylococcus; N18.6 End stage renal disease; I12.0 Hypertensive chronic kidney disease with stage 5 chronic kidney disease or end stage renal disease; E87.1 Hypo-osmolality and hyponatremia; N25.81 Secondary hyperparathyroidism of renal origin; E44.0 Moderate protein-calorie malnutrition; T82.838A Hemorrhage due to vascular prosthetic devices, implants and grafts, initial encounter; D63.1 Anemia in chronic kidney disease; B96.89 Other specified bacterial agents as the cause of diseases classified elsewhere; E83.39 Other disorders of phosphorus metabolism; B95.61 Methicillin susceptible Staphylococcus aureus infection as the cause of diseases classified elsewhere; M17.12 Unilateral primary osteoarthritis, left knee; K59.00 Constipation, unspecified; I08.1 Rheumatic disorders of both mitral and tricuspid valves; M25.462 Effusion, left knee; E87.5 Hyperkalemia; E78.00 Pure hypercholesterolemia, unspecified; Y83.8 Other surgical procedures as the cause of abnormal reaction of the patient, or of later complication, without mention of misadventure at the time of the procedure; Z79.899 Other long term (current) drug therapy; Z99.2 Dependence on renal dialysis; Y92.89 Other specified places as the place of occurrence of the external cause; Z68.23 Body mass index [BMI] 23.0-23.9, adult
CPT/HCPCS: 36561; 71045; 72148; 72195; 73721; 76937; 80048; 80053; 80202; 82805; 82962; 83605; 83735; 84100; 84132; 85025; 85610; 85730; 86850; 86900; 86901; 86923; 87040; 87070; 87075; 87077; 87081; 87101; 87186; 87205; 87340; 88305; 89051; 89060; 90935; 93005; 93306; 93971; 97110; 97116; 97163; 97530; 99285; G0238; G0378; J0131; J0690; J0696; J0885; J1170; J1644; J1815; J2250; J2370; J2405; J3010; J3370; J3490; J7030; J7040; J7050; J7060; Q9967; 36415-L1; 36415-TC; Z7610